=== PATIENT | male | born 1980 | race American Indian/Alaskan Native ===

== ENCOUNTER 2018-04-16 16:17 | Inpatient (IN) | payer OTHER ==
[2018-04-16] MEDS ORDERED: NORMODYNE IV ONE ×2 (16:43→16:48)
--- NOTE | 2018-04-16 16:57 | Emergency Department Report ---
ED General Adult HPI - General Chief complaint: Eye Problems Stated complaint: BLOOD PRESSUREDIZZY COLD Time Seen by Provider: 04/16/18 16:51 Source: EMS Mode of arrival: Ambulatory Limitations: No Limitations - History of Present Illness Initial comments: Patient is 37 years old male with history of hypertension, noncompliant with his medication. Patient stated that last time he took his medication was more than one year ago. Patient presented to the ER complaining of significantly elevated blood pressure with bilateral blurry vision, shortness of breath and headache. She denied any chest pain, weakness, numbness or tingling sensation. Patient also stated that he is been having runny nose and congestion in the this taking [id number] cough medicine. Patient initial blood pressure in the ER is 253/187. - Related Data Home Medications Medication Instructions Recorded Confirmed Last Taken No Known Home Medications [No 04/16/18 04/16/18 Unknown Reported Home Medications] Allergies Allergy/AdvReac Type Severity Reaction Status Date / Time No Known Allergies Allergy Verified 04/16/18 16:41 ED Review of Systems ROS: Stated complaint: BLOOD PRESSUREDIZZY COLD Other details as noted in HPI Comment: All other systems reviewed and negative Constitutional: denies: chills, fever Respiratory: denies: cough, orthopnea, shortness of breath, SOB with exertion, SOB at rest, wheezing Cardiovascular: palpitations. denies: chest pain, dyspnea on exertion, orthopnea Gastrointestinal: denies: abdominal pain, nausea, vomiting, diarrhea, constipation, hematemesis, melena, hematochezia Neurological: headache. denies: weakness, numbness, paresthesias, confusion, abnormal gait, vertigo ED Past Medical Hx - Past Medical History Previous Medical History?: Yes Hx Hypertension: Yes - Surgical History Past Surgical History?: Yes Additional Surgical History: L. leg - Social History Smoking Status: Current Every Day Smoker Substance Use Type: Alcohol, Marijuana - Medications Home Medications: Home Medications Medication Instructions Recorded Confirmed Last Taken Type No Known Home Medications [No 04/16/18 04/16/18 Unknown History Reported Home Medications] ED Physical Exam - General Limitations: No Limitations General appearance: alert, anxious - Head Head exam: Present: atraumatic, normocephalic, normal inspection - Eye Eye exam: Present: normal appearance - ENT ENT exam: Present: normal exam, normal orophraynx, mucous membranes moist - Neck Neck exam: Present: normal inspection, full ROM. Absent: tenderness, meningismus, lymphadenopathy, thyromegaly - Respiratory Respiratory exam: Present: normal lung sounds bilaterally. Absent: respiratory distress, wheezes, rales, rhonchi, accessory muscle use, decreased breath sounds , prolonged expiratory - Cardiovascular Cardiovascular Exam: Present: regular rate, normal rhythm, normal heart sounds - GI/Abdominal GI/Abdominal exam: Present: soft, normal bowel sounds. Absent: distended, tenderness, guarding, rebound, rigid, organomegaly, mass, bruit, pulsatile mass - Extremities Exam Extremities exam: Present: normal inspection, full ROM, normal capillary refill. Absent: tenderness, pedal edema, joint swelling, calf tenderness - Back Exam Back exam: Present: normal inspection, full ROM. Absent: tenderness, CVA tenderness (R), CVA tenderness (L), muscle spasm, paraspinal tenderness, vertebral tenderness, rash noted - Neurological Exam Neurological exam: Present: alert, oriented X3, CN II-XII intact, normal gait - Skin Skin exam: Present: warm, intact, normal color. Absent: cyanosis, diaphoretic, erythema, urticaria ED Course Vital Signs 04/16/18 04/16/18 04/16/18 16:32 16:35 16:47 Temperature 98.4 F Pulse Rate 124 H 120 H Respiratory 18 22 Rate Blood Pressure 253/181 259/187 O2 Sat by Pulse 98 Oximetry 04/16/18 04/16/18 04/16/18 17:13 17:15 17:30 Temperature Pulse Rate 98 H 99 H 99 H Respiratory 21 25 H 20 Rate Blood Pressure 215/158 O2 Sat by Pulse 90 91 89 Oximetry 04/16/18 04/16/18 04/16/18 17:45 18:00 18:15 Temperature Pulse Rate 105 H 103 H 108 H Respiratory 28 H 27 H 20 Rate Blood Pressure 227/165 225/153 224/165 O2 Sat by Pulse 88 86 88 Oximetry 04/16/18 18:30 Temperature Pulse Rate 108 H Respiratory 30 H Rate Blood Pressure 214/162 O2 Sat by Pulse 91 Oximetry - Reevaluation(s) Reevaluation #1: 04/16/18 17:48 Discussed the patient was Dr. Cameron Heredia, genetic supervisor, he advised to continue the Cardizem drip and add clonidine patch 0.3 mg and start patient on Aldactone 25 mg twice a day. He stated that patient would need dialysis tomorrow. ED Medical Decision Making - Lab Data Result diagrams: 04/16/18 16:55 04/16/18 16:55 - EKG Data -: EKG Interpreted by Me EKG shows normal: sinus rhythm Rate: tachycardia - EKG Data Interpretation: no acute changes, nonspecific ST-T wave poncho - Radiology Data Radiology results: report reviewed Referring Physician: AMANDA MULLIGAN Patient Name: LOUIE HICKS Date of : 1980 Sex: Male Report Date: 2018-04-16 Report Status: Finalized Findings [address] [address] XRay Report Signed Patient: LOUIE HICKS MR#: [id number] : 1980 Acct:[id number] Age/Sex: 37 / M ADM Date: 04/16/18 Loc: ED Attending Dr: Ordering Physician: AMANDA MULLIGAN Date of Service: 04/16/18 Procedure(s): XR chest 1V ap Accession Number(s): [id number] cc: AMANDA MULLIGAN Fluoro Time In Minutes: FINAL REPORT EXAM: XR CHEST 1V AP HISTORY: SOB TECHNIQUE: Single AP view of the chest PRIORS: None. FINDINGS: There is confluent increased density within the right lower lobe distribution suspicious for pneumonia No pleural effusion is identified. Pulmonary vasculature is unremarkable. The cardiac and mediastinal contours are within normal limits. IMPRESSION: Right lower lobe infiltrate most consistent with pneumonia Transcribed By: JDK Dictated By: HILARY MANUEL MD Electronically Authenticated By: HILARY MANUEL MD Signed Date/Time: 04/16/18 5549 Referring Physician: AMANDA MULLIGAN Patient Name: LOUIE HICKS Date of : 1980 Sex: Male Report Date: 2018-04-16 Report Status: Finalized Findings [address] [address] Cat Scan Report Signed Patient: LOUIE HICKS MR#: [id number] : 1980 Acct:[id number] Age/Sex: 37 / M ADM Date: 04/16/18 Loc: ED Attending Dr: Ordering Physician: AMANDA MULLIGAN Date of Service: 04/16/18 Procedure(s): CT head/brain wo con Accession Number(s): [id number] cc: AMANDA MULLIGAN FINAL REPORT EXAM: CT HEAD/BRAIN WO CON HISTORY: blurred vision, elevated BP TECHNIQUE: CT head without contrast PRIORS: None. FINDINGS: There is white matter hypodensity both frontal lobes with preservation of brumfield-white matter differentiation. Noted is a cavum septum pellucidum et vergae. Ventricles are otherwise unremarkable. No evidence for midline shift or mass effect. No acute intra or extra-axial hemorrhage identified. Bony calvarium is intact. Visualized portions of the mastoids and paranasal sinuses are unremarkable. IMPRESSION: White matter hypodensity both frontal lobes. Differential considerations include hypertensive encephalopathy, chronic ischemic or traumatic change or edema due to underlying mass. Recommend followup MRI to include intravenous contrast Transcribed By: [facility] Dictated By: HILARY MANUEL MD Electronically Authenticated By: HILARY MANUEL MD Signed Date/Time: 04/16/181745 DD/ 45 TD/TT: 04/16/181745 DD/ 55 TD/TT: 04/16/181755 - Medical Decision Making I discussed patient with Dr Valdez, he agreed to admit to his service. Critical Care Time: Yes Critical care time in (mins) excluding proc time.: 30 Critical care attestation.: If time is entered above; I have spent that time in minutes in the direct care of this critically ill patient, excluding procedure time. ED Disposition Clinical Impression: Hypertensive crisis, Acute renal failure, RLL pneumonia, Hypoxia Disposition: OP ADMIT IP TO THIS HOSP Is pt being admited?: Yes Condition: Stable Instructions: Bacterial Pneumonia (ED) Referrals: PRIMARY CARE, [Primary Care Provider] - 3-5 Days
[2018-04-16 17:13] LABS: Hematocrit 35.1 % (35.5-45.6); Hemoglobin 12.2 gm/dl (11.8-15.2); Mean Corpuscular Volume 91 fl (84-94); Red Blood Count 3.88 M/mm3 (3.65-5.03)
[2018-04-16 17:14] LABS: Basophils # (Auto) 0.1 K/mm3 (0.0-0.1); Basophils % (Auto) 1.3 % (0.0-1.8); Eosinophils % (Auto) 0.2 % (0.0-4.3); Lymphocytes # (Auto) 0.8 K/mm3 (1.2-5.4); Lymphocytes % (Auto) 7.4 % (13.4-35.0); Mean Corpuscular HGB Conc 35 % (32-34); Mean Corpuscular Hemoglobin 31 pg (28-32); Monocytes # (Auto) 0.8 K/mm3 (0.0-0.8); Monocytes % (Auto) 8.3 % (0.0-7.3); Platelet Count 116 K/mm3 (140-440); Red Cell Distribution Width 14.4 % (13.2-15.2)
[2018-04-16 17:29] LABS: Calcium 9.4 mg/dL (8.4-10.2)
[2018-04-16] MEDS ORDERED: ALDACTONE PO ONE (17:44)
--- NOTE | 2018-04-16 17:50 | Cat Scan Report ---
FINAL REPORT EXAM: CT HEAD/BRAIN WO CON HISTORY: blurred vision, elevated BP TECHNIQUE: CT head without contrast PRIORS: None. FINDINGS: There is white matter hypodensity both frontal lobes with preservation of brumfield-white matter differentiation. Noted is a cavum septum pellucidum et vergae. Ventricles are otherwise unremarkable. No evidence for midline shift or mass effect. No acute intra or extra-axial hemorrhage identified. Bony calvarium is intact. Visualized portions of the mastoids and paranasal sinuses are unremarkable. IMPRESSION: White matter hypodensity both frontal lobes. Differential considerations include hypertensive encephalopathy, chronic ischemic or traumatic change or edema due to underlying mass. Recommend followup MRI to include intravenous contrast
[2018-04-16] MEDS ORDERED: CATAPRES-TTS PATCH TD SCH (18:00)
--- NOTE | 2018-04-16 18:01 | XRay Report ---
FINAL REPORT EXAM: XR CHEST 1V AP HISTORY: SOB TECHNIQUE: Single AP view of the chest PRIORS: None. FINDINGS: There is confluent increased density within the right lower lobe distribution suspicious for pneumonia No pleural effusion is identified. Pulmonary vasculature is unremarkable. The cardiac and mediastinal contours are within normal limits. IMPRESSION: Right lower lobe infiltrate most consistent with pneumonia
--- NOTE | 2018-04-16 18:11 | History and Physical Report ---
History of Present Illness Chief complaint: Justina been coughing History of present illness: 37 YO Male with HTN, Nicotine Dependence, Medication Noncompliance for past 2 years presents to ED for evaluation. Pt states that he has experienced a nonproductive cough for the past 4 days with persistent symptoms over the same time frame. Pt also acknowledges blurred vision, headache, confusion, and shortness of breath. Pt states that he feels like his thinking is "slow". Pt seen and evaluated in ED and found to have Hypertensive Emergency with blood pressure of 259/187, as well as Acute Renal Failure, and Right Lung Pneumonia. Pt admitted to ICU, and initiated on cardene drip. Nephrology consulted in ED. Past History Past Medical History: hypertension Past Surgical History: Other (left Leg surgery) Social history: smoking Family history: hypertension Medications and Allergies Allergies Allergy/AdvReac Type Severity Reaction Status Date / Time No Known Allergies Allergy Verified 04/16/18 16:41 Home Medications Medication Instructions Recorded Confirmed Last Taken Type No Known Home Medications [No 04/16/18 04/16/18 Unknown History Reported Home Medications] Active Meds: Active Medications Clonidine HCl (Catapres-Tts Patch) 0.3 mg TD Busch KEITH Nicardipine HCl 50 mg/ Sodium (Chloride) 250 mls @ 25 mls/hr IV TITR KEITH; Protocol Review of Systems Constitutional: weakness, no weight loss, no weight gain, no fever, no chills Eyes: bilateral: blurred vision Ears, nose, mouth and throat: no ear pain, no ear discharge, no tinnitis, no decreased hearing, no nose pain, no nasal congestion Cardiovascular: no chest pain, no orthopnea, no palpitations, no rapid/ irregular heart beat Respiratory: shortness of breath, no cough, no cough with sputum, no excessive sputum, no hemoptysis Gastrointestinal: no nausea, no vomiting, no diarrhea, no constipation, no change in bowel habits Genitourinary Male: no hematuria, no flank pain, no discharge, no urinary frequency Rectal: no pain, no incontinence, no bleeding Musculoskeletal: no neck stiffness, no neck pain, no shooting arm pain, no arm numbness/tingling, no low back pain, no hot joints, no morning stiffness, no muscle weakness Integumentary: no rash, no pruritis, no redness, no sores, no wounds, no jaundice Neurological: headaches, confusion Endocrine: no cold intolerance, no heat intolerance, no polyphagia, no excessive thirst, no polydipsia, no polyuria, no increase in ring/shoe/hat size , no proptosis, no deepening of the voice, no palpatations Hematologic/Lymphatic: no easy bruising, no easy bleeding, no lymphadenopathy, no lymphedema Allergic/Immunologic: no urticaria, no allergic rhinitis, no wheezing, no persistent infections, no anaphylaxis, no angioedema Exam - Constitutional Vitals: Temp Pulse Resp BP Pulse Ox 98.4 F 105 H 28 H 227/165 88 04/16/18 16:32 04/16/18 17:45 04/16/18 17:45 04/16/18 17:45 04/16/18 17:45 General appearance: Present: mild distress - EENT Eyes: Present: PERRL ENT: hearing intact, clear oral mucosa - Neck Neck: Present: supple, normal ROM - Respiratory Respiratory effort: normal Respiratory: bilateral: CTA - Cardiovascular Heart Sounds: Present: S1 & S2. Absent: rub, click - Extremities Extremities: pulses symmetrical, No edema Peripheral Pulses: within normal limits - Abdominal General gastrointestinal: Present: soft, non-tender, non-distended, normal bowel sounds Male genitourinary: Present: normal - Integumentary Integumentary: Present: clear, warm, dry - Musculoskeletal Musculoskeletal: gait normal, strength equal bilaterally - Psychiatric Psychiatric: appropriate mood/affect, intact judgment & insight - Neurologic Neurologic: CNII-XII intact, moves all extremities Results - Labs CBC & Chem 7: 04/16/18 16:55 04/16/18 16:55 Labs: Abnormal lab results 04/16/18 04/16/18 Range/Units 16:55 16:55 Hct 35.1 L (35.5-45.6) % MCHC 35 H (32-34) % Plt Count 116 L (140-440) K/mm3 Lymph % (Auto) 7.4 L (13.4-35.0) % Bay % (Auto) 8.3 H (0.0-7.3) % Lymph # 0.8 L (1.2-5.4) K/mm3 Seg Neutrophils % 82.8 H (40.0-70.0) % Seg Neutrophils # 8.4 H (1.8-7.7) K/mm3 Sodium 133 L (137-145) mmol/L Chloride 89.2 L (98-107) mmol/L Carbon Dioxide 18 L (22-30) mmol/L BUN 104 H (9-20) mg/dL Creatinine 19.1 H (0.8-1.5) mg/dL Glucose 139 H (75-100) mg/dL Troponin T 0.190 H* (0.00-0.029) ng/mL Assessment and Plan - Patient Problems (1) Hypertensive crisis Current Visit: Yes Status: Acute Plan to address problem: Initiate Cardene drip, monitor BP q shift, Admit to ICU. Sytolic BP Goal overnight 190-205, Neuro checks, CT Brain, The high probability of a clinically significant, sudden or life threatening deterioration of the [Neuro, Cardiac,Renal] system(s) required my full and direct attention, intervention and personal management. The aggregate critical care time was [65] minutes. This time is in addition to time spent performing reported procedures but includes the following: [x] Data Review and interpretation [x] Patient assessment and monitoring of vital signs [x] Documentation [x] Medication orders and management (2) Acidosis Current Visit: Yes Status: Acute Plan to address problem: Monitor uop q shift, supportive care, repeat bmp, (3) Nicotine dependence Current Visit: Yes Status: Acute Qualifiers: Substance use status: in withdrawal Plan to address problem: Smoking cessation counseling. (4) Acute renal failure Current Visit: Yes Status: Acute Qualifiers: Acute renal failure type: with acute tubular necrosis Qualified Code(s): N17.0 - Acute kidney failure with tubular necrosis Plan to address problem: Nephrology consulted in ED, monitor uop q shift, Vascular consulted for permacath placement, (5) RLL pneumonia Current Visit: Yes Status: Acute Plan to address problem: Pneumonia protocol: IV antibiotics, blood cultures, chest x ray, supplemental oxygen, nebulizer therapy, (6) DVT prophylaxis Current Visit: Yes Status: Acute Plan to address problem: SCD to BLE while in bed.
[2018-04-16] MEDS ORDERED: SODIUM CHLORIDE FLUSH SYRINGE 10 ML IV PRN (18:14)
[2018-04-16 18:17] LABS: Chol/HDL Ratio 4.3 %
[2018-04-16] MEDS: ASPIRIN PO ONE ×2 (18:42→18:50)
[2018-04-16] MEDS: CARDENE 50 MG in NACL 0.9% 250ML 230 ML IV SCH (18:49)
[2018-04-16] MEDS: ZITHROMAX 500 MG in NACL 0.9% 250ML 250 ML IV SCH (20:09)
[2018-04-16] MEDS: ROCEPHIN/NS 1 GM/50 ML 1 GM/50 ML BAG IV SCH (20:56)
--- NOTE | 2018-04-16 21:07 | Event Note ---
Date: 04/16/18 Vascular surgery consulted for permcath placement. Plan for tomorrow.
[2018-04-17] MEDS: CARDENE 50 MG in NACL 0.9% 250ML 230 ML IV SCH ×4 (04:08→18:34)
[2018-04-17] MEDS ORDERED: HEPARIN/NS 5000 UNIT/500ML(CATH LAB) 500 ML IR ONE (08:21)
[2018-04-17] MEDS ORDERED: ANCEF/STERILE WATER 2 GM/20 ML 0 GM/0 ML SYRINGE IV ONE (08:22)
[2018-04-17] MEDS ORDERED: XYLOCAINE 2% INFILTRATI ONE (08:22)
[2018-04-17] MEDS ORDERED: VERSED ONE (08:23)
[2018-04-17] MEDS ORDERED: NACL 0.9% 250ML 250 ML ONE (08:27)
[2018-04-17] MEDS: SUBLIMAZE ONE ×2 (08:59→09:07)
[2018-04-17] MEDS: HEPARIN 10,000 UNITS/10 ML ONE ×6 (09:03→09:10)
--- NOTE | 2018-04-17 09:16 | Operative Report ---
Operative Report Operative Report: Exam: Ultrasound and fluoroscopic guided placement of tunneled hemodialysis catheter Clinical indication: Patient with a history of end-stage renal disease requiring dialysis access Date: 04/17/2018 Procedure: Following an explanation of the risks, benefits and alternatives; written informed consent was obtained. The patient was brought to the cardiac catheterization suite and placed in supine position on the examination table. Initial ultrasound evaluation of his right neck demonstrated a patent right internal jugular vein. The patient's right neck and chest wall were prepped and draped in the usual sterile fashion. 1% lidocaine was used for anesthesia. Under ultrasound guidance, the right internal jugular vein was cannulated with a 7 cm 18-gauge needle. A 0.035 guidewire was advanced into the IVC under fluoroscopy to document intravenous positioning and for anchoring. The needle was removed. An appropriate catheter exit site was chosen along the right lateral chest wall. 1% lidocaine was used for anesthesia at the catheter exit site and along the tunnel tract. A Bard 23 cm glidepath tunneled hemodialysis catheter was then tunneled antegrade from the catheter exit site to the venotomy site. Following serial dilation over the guidewire under fluoroscopy, a 16 Bulgarian peel -away sheath was placed over the guidewire under fluoroscopy and advanced to position the tip of the sheath in the proximal right atrium. The trocar and guidewire were removed and the catheter placed through the peel-away sheath to position the tip in the proximal right atrium. The peel-away sheath was removed. Both ports flushed and aspirated easily and were then locked with appropriate volumes of heparin. The venotomy site was closed using 4-0 Vicryl suture and Dermabond. 4-0 Vicryl suture was also used to approximate the catheter exit site and additional Dermabond was placed at the catheter exit site. Sterile dressings were then applied. The patient tolerated the procedure well. There were no immediate post procedure complications. Conscious sedation was performed under the guidance of radiologic nursing. Continuous cardiopulmonary monitoring was utilized. Impression: 1) Ultrasound and fluoroscopic guided placement of 23 cm Bard glidepath tunneled hemodialysis catheter via the right internal jugular vein.
--- NOTE | 2018-04-17 09:55 | Progress Note ---
Assessment and Plan / Hypertensive crisis wean off Cardene drip, monitor BP q shift, normal CT Brain, Place on coreg, norvasc add aspirin, statin / Acute renal failure, likely from hypertensive nephropathy Nephrology consulted in ED for HD, Permacath placement by Vascular Plan for HD today / RLL pneumonia cont IV antibiotics, supplemental oxygen, nebulizer therapy, /Elevated troponin likely from uncontrolled BP, trend trop, obtain 2d echo /Abnormal CT head, obtain mRI /Metabolic Acidosis Monitor uop q shift, should correct with HD /Nicotine dependence Smoking cessation counseling. / DVT prophylaxis SCD to BLE while in bed. Brief History: 37 YO Male with HTN, Nicotine Dependence, Medication Noncompliance for past 2 years presents to ED for evaluation of nonproductive cough blurred vision, headache, confusion, and shortness of breath. Pt seen and evaluated in ED and found to have Hypertensive Emergency with blood pressure of 259/187, as well as Acute Renal Failure, and Right Lung Pneumonia. Pt admitted to ICU, and initiated on cardene drip. Nephrology consulted in ED. Subjective Date of service: 04/17/18 Interval history: Pt seen and examined S/p vascath placement still on cardene drip Objective - Constitutional Vitals: Vital Signs - 12hr 04/16/18 04/16/18 04/16/18 22:00 22:15 23:16 Temperature Pulse Rate 106 H 105 H 115 H Pulse Rate [ From Monitor] Respiratory 24 30 H 20 Rate Blood Pressure 178/116 180/126 O2 Sat by Pulse 95 91 94 Oximetry 04/16/18 04/16/18 04/17/18 23:31 23:45 00:00 Temperature 98.5 F Pulse Rate 112 H 108 H Pulse Rate [ From Monitor] Respiratory 19 22 20 Rate Blood Pressure 153/102 153/102 O2 Sat by Pulse 95 92 96 Oximetry 04/17/18 04/17/18 04/17/18 00:01 00:05 00:15 Temperature Pulse Rate 110 H 110 H 112 H Pulse Rate [ From Monitor] Respiratory 24 28 H 24 Rate Blood Pressure 139/90 139/90 139/90 O2 Sat by Pulse 94 94 91 Oximetry 04/17/18 04/17/18 04/17/18 00:30 00:45 01:00 Temperature Pulse Rate 109 H 108 H 110 H Pulse Rate [ From Monitor] Respiratory 29 H 28 H 30 H Rate Blood Pressure 138/85 138/85 131/87 O2 Sat by Pulse 95 94 97 Oximetry 04/17/1804/17/04/17/18 01:15 01:31 01:45 Temperature Pulse Rate 112 H 108 H 105 H Pulse Rate [ From Monitor] Respiratory 25 H 25 H 27 H Rate Blood Pressure 131/87 126/73 126/73 O2 Sat by Pulse 94 95 94 Oximetry 04/17/18 04/17/18 04/17/18 02:01 02:15 02:31 Temperature Pulse Rate 107 H 105 H 106 H Pulse Rate [ From Monitor] Respiratory 30 H 26 H 30 H Rate Blood Pressure 133/85 133/85 133/85 O2 Sat by Pulse 93 96 95 Oximetry 04/17/18 04/17/18 07 02:45 03:01 03:15 Temperature Pulse Rate 109 H 114 H 110 H Pulse Rate [ From Monitor] Respiratory 23 29 H 25 H Rate Blood Pressure 151/99 160/103 160/103 O2 Sat by Pulse 95 93 96 Oximetry 04/17/18 04/17/18 07 03:31 03:45 04:00 Temperature 98.8 F Pulse Rate 111 H 112 H Pulse Rate [ From Monitor] Respiratory 27 H 16 24 Rate Blood Pressure 151/91 151/91 O2 Sat by Pulse 92 97 94 Oximetry 04/17/18 04/17/18 07 04:01 04:15 04:31 Temperature Pulse Rate 110 H 110 H 107 H Pulse Rate [ From Monitor] Respiratory 23 31 H 20 Rate Blood Pressure 148/84 148/84 148/84 O2 Sat by Pulse 94 93 92 Oximetry 04/17/18 04/17/18 04/17/18 04:45 05:01 05:15 Temperature Pulse Rate 108 H 108 H 107 H Pulse Rate [ From Monitor] Respiratory 16 30 H 29 H Rate Blood Pressure 136/82 140/93 140/93 O2 Sat by Pulse 93 95 92 Oximetry 04/17/1804/17/02 05:31 05:45 06:01 Temperature Pulse Rate 105 H 104 H 108 H Pulse Rate [ From Monitor] Respiratory 22 19 12 Rate Blood Pressure 139/72 139/72 131/78 O2 Sat by Pulse 94 96 94 Oximetry 04/17/18 04/17/18 07 06:15 06:30 06:45 Temperature Pulse Rate 107 H 105 H 106 H Pulse Rate [ From Monitor] Respiratory 20 23 13 Rate Blood Pressure 131/78 135/80 135/80 O2 Sat by Pulse 95 94 95 Oximetry 04/17/18 04/17/18 04/17/18 07:01 07:15 07:30 Temperature Pulse Rate 105 H 108 H 107 H Pulse Rate [ From Monitor] Respiratory 17 26 H 24 Rate Blood Pressure 133/83 133/83 137/77 O2 Sat by Pulse 96 95 94 Oximetry 04/17/18 08:00 Temperature 98.1 F Pulse Rate Pulse Rate [ 108 H From Monitor] Respiratory 24 Rate Blood Pressure O2 Sat by Pulse 95 Oximetry General appearance: Present: no acute distress, well-nourished - EENT Eyes: PERRL, EOM intact ENT: hearing intact, clear oral mucosa Ears: bilateral: normal - Neck Neck: supple, normal ROM - Respiratory Respiratory effort: normal Respiratory: bilateral: CTA - Cardiovascular Rhythm: regular Heart Sounds: Present: S1 & S2. Absent: gallop, rub Extremities: pulses intact, No edema, normal color, Full ROM - Gastrointestinal General gastrointestinal: Present: soft, non-tender, non-distended, normal bowel sounds - Integumentary Integumentary: clear, warm, dry - Musculoskeletal Musculoskeletal: 1, strength equal bilaterally - Neurologic Neurologic: moves all extremities - Psychiatric Psychiatric: memory intact, appropriate mood/affect, intact judgment & insight - Labs CBC & Chem 7: 04/17/18 16:13 04/17/18 16:13 Labs: Abnormal lab results 04/16/18 04/16/18 04/16/18 Range/Units 16:55 16:55 16:55 Hct 35.1 L (35.5-45.6) % MCHC 35 H (32-34) % Plt Count 116 L (140-440) K/mm3 Lymph % (Auto) 7.4 L (13.4-35.0) % [place] % (Auto) 8.3 H (0.0-7.3) % Lymph # 0.8 L (1.2-5.4) K/mm3 Seg Neutrophils % 82.8 H (40.0-70.0) % Seg Neutrophils # 8.4 H (1.8-7.7) K/mm3 Sodium 133 L (137-145) mmol/L Chloride 89.2 L (98-107) mmol/L Carbon Dioxide 18 L (22-30) mmol/L BUN 104 H (9-20) mg/dL Creatinine 19.1 H (0.8-1.5) mg/dL Glucose 139 H (75-100) mg/dL Troponin T 0.190 H* (0.00-0.029) ng/mL NT-Pro-B Natriuret Pep > 10590 H (0-450) pg/mL Cholesterol 258 H (50-199) mg/dL LDL Cholesterol Direct 178 H (50-130) mg/dL HDL Cholesterol 60 H (40-59) mg/dL 04/16/18 04/16/18 Range/Units 19:28 22:01 Hct (35.5-45.6) % MCHC (32-34) % Plt Count (140-440) K/mm3 Lymph % (Auto) (13.4-35.0) % [place] % (Auto) (0.0-7.3) % Lymph # (1.2-5.4) K/mm3 Seg Neutrophils % (40.0-70.0) % Seg Neutrophils # (1.8-7.7) K/mm3 Sodium (137-145) mmol/L Chloride (98-107) mmol/L Carbon Dioxide (22-30) mmol/L BUN (9-20) mg/dL Creatinine (0.8-1.5) mg/dL Glucose (75-100) mg/dL Troponin T 0.149 H* D 0.171 H* (0.00-0.029) ng/mL NT-Pro-B Natriuret Pep (0-450) pg/mL Cholesterol (50-199) mg/dL LDL Cholesterol Direct (50-130) mg/dL HDL Cholesterol (40-59) mg/dL - Imaging and cardiology Chest x-ray: report reviewed CT Scan - head: report reviewed
[2018-04-17] MEDS ORDERED: NACL 0.9% 100 ML IV PRN (10:46)
--- NOTE | 2018-04-17 10:46 | Consultation ---
History of Present Illness - Reason for Consult Consult date: 04/17/18 - History of Present Illness pt was seen and examined. Discussed with pt and family member. Uremia, S/P dialysis catheter this morning. HD as ordered. Hypertensive crisis--on Cardene drip. Avoid hypotension. Past History Past Medical History: hypertension Past Surgical History: Other (left Leg surgery) Social history: smoking Family history: hypertension Medications and Allergies Allergies Allergy/AdvReac Type Severity Reaction Status Date / Time No Known Allergies Allergy Verified 04/16/18 16:41 Home Medications Medication Instructions Recorded Confirmed Last Taken Type No Known Home Medications [No 04/16/18 04/16/18 Unknown History Reported Home Medications] Active Meds: Active Medications Clonidine HCl (Catapres-Tts Patch) 0.3 mg TD Busch KEITH Last Admin: 04/16/18 18:41 Dose: 0.3 mg Nicardipine HCl 50 mg/ Sodium (Chloride) 250 mls @ 25 mls/hr IV TITR KEITH; Protocol Last Admin: 04/17/18 06:52 Dose: 15 mg/hr, 75 mls/hr Azithromycin 500 mg/ Sodium (Chloride) 250 mls @ 250 mls/hr IV Q24H KEITH; Protocol Last Admin: 04/16/18 20:09 Dose: 250 mls/hr Ceftriaxone Sodium (Rocephin/Ns 1 Gm/50 Ml) 1 gm in 50 mls @ 100 mls/hr IV Q24H KEITH; Protocol Last Admin: 04/16/18 20:56 Dose: 100 mls/hr Sodium Chloride (Sodium Chloride Flush Syringe 10 Ml) 10 ml IV BID KEITH Sodium Chloride (Sodium Chloride Flush Syringe 10 Ml) 10 ml IV PRN PRN PRN Reason: LINE FLUSH Exam - Constitutional Vitals: Temp Pulse Resp BP Pulse Ox 98.1 F 103 H 23 149/94 97 04/17/18 08:00 04/17/18 10:16 04/17/18 10:16 04/17/18 10:16 04/17/18 10:16 Results - Labs CBC & Chem 7: 04/16/18 16:55 04/16/18 16:55 Labs: Abnormal lab results 04/16/18 04/16/18 04/16/18 Range/Units 16:55 16:55 16:55 Hct 35.1 L (35.5-45.6) % MCHC 35 H (32-34) % Plt Count 116 L (140-440) K/mm3 Lymph % (Auto) 7.4 L (13.4-35.0) % [place] % (Auto) 8.3 H (0.0-7.3) % Lymph # 0.8 L (1.2-5.4) K/mm3 Seg Neutrophils % 82.8 H (40.0-70.0) % Seg Neutrophils # 8.4 H (1.8-7.7) K/mm3 Sodium 133 L (137-145) mmol/L Chloride 89.2 L (98-107) mmol/L Carbon Dioxide 18 L (22-30) mmol/L BUN 104 H (9-20) mg/dL Creatinine 19.1 H (0.8-1.5) mg/dL Glucose 139 H (75-100) mg/dL Troponin T 0.190 H* (0.00-0.029) ng/mL NT-Pro-B Natriuret Pep > 94945 H (0-450) pg/mL Cholesterol 258 H (50-199) mg/dL LDL Cholesterol Direct 178 H (50-130) mg/dL HDL Cholesterol 60 H (40-59) mg/dL 04/16/18 04/16/18 Range/Units 19:28 22:01 Hct (35.5-45.6) % MCHC (32-34) % Plt Count (140-440) K/mm3 Lymph % (Auto) (13.4-35.0) % [place] % (Auto) (0.0-7.3) % Lymph # (1.2-5.4) K/mm3 Seg Neutrophils % (40.0-70.0) % Seg Neutrophils # (1.8-7.7) K/mm3 Sodium (137-145) mmol/L Chloride (98-107) mmol/L Carbon Dioxide (22-30) mmol/L BUN (9-20) mg/dL Creatinine (0.8-1.5) mg/dL Glucose (75-100) mg/dL Troponin T 0.149 H* D 0.171 H* (0.00-0.029) ng/mL NT-Pro-B Natriuret Pep (0-450) pg/mL Cholesterol (50-199) mg/dL LDL Cholesterol Direct (50-130) mg/dL HDL Cholesterol (40-59) mg/dL
--- NOTE | 2018-04-17 11:41 | Consultation ---
History of Present Illness Consult date: 04/17/18 Requesting physician: CARLOTTA BAKER Reason for consult: other (Hypertensive Emergency) History of present illness: PULMONARY/CCM CONSULT NOTE (Full dictation # [id number]) Please see dictated notes for full details Past History Past Medical History: hypertension Past Surgical History: Other (left Leg surgery) Social history: smoking Family history: hypertension Medications and Allergies Allergies Allergy/AdvReac Type Severity Reaction Status Date / Time No Known Allergies Allergy Verified 04/16/18 16:41 Home Medications Medication Instructions Recorded Confirmed Last Taken Type No Known Home Medications [No 04/16/18 04/16/18 Unknown History Reported Home Medications] Active Meds: Active Medications Clonidine HCl (Catapres-Tts Patch) 0.3 mg TD Busch KEITH Last Admin: 04/16/18 18:41 Dose: 0.3 mg Nicardipine HCl 50 mg/ Sodium (Chloride) 250 mls @ 25 mls/hr IV TITR KEITH; Protocol Last Admin: 04/17/18 06:52 Dose: 15 mg/hr, 75 mls/hr Azithromycin 500 mg/ Sodium (Chloride) 250 mls @ 250 mls/hr IV Q24H KEITH; Protocol Last Admin: 04/16/18 20:09 Dose: 250 mls/hr Ceftriaxone Sodium (Rocephin/Ns 1 Gm/50 Ml) 1 gm in 50 mls @ 100 mls/hr IV Q24H KEITH; Protocol Last Admin: 04/16/18 20:56 Dose: 100 mls/hr Sodium Chloride (Nacl 0.9%) 100 mls @ 999 mls/hr IV PANKAJ PRN PRN Reason: Hypotension Sodium Chloride (Sodium Chloride Flush Syringe 10 Ml) 10 ml IV BID KEITH Sodium Chloride (Sodium Chloride Flush Syringe 10 Ml) 10 ml IV PRN PRN PRN Reason: LINE FLUSH Physical Examination Vital signs: Vital Signs Temp Pulse Resp BP Pulse Ox 98.4 F 124 H 18 253/181 98 04/16/18 16:32 04/16/18 16:32 04/16/18 16:32 04/16/18 16:32 04/16/18 16:32 Results - Laboratory Findings CBC and BMP: 04/17/18 16:13 04/17/18 16:13 Abnormal lab findings: Abnormal Labs 07/01/18 07/01/18 07/01/18 16:55 16:55 16:55 Hct 35.1 L MCHC 35 H Plt Count 116 L Lymph % (Auto) 7.4 L [place] % (Auto) 8.3 H Lymph # 0.8 L Seg Neutrophils % 82.8 H Seg Neutrophils # 8.4 H Sodium 133 L Chloride 89.2 L Carbon Dioxide 18 L BUN 104 H Creatinine 19.1 H Glucose 139 H Troponin T 0.190 H* NT-Pro-B Natriuret Pep > 08552 H Cholesterol 258 H LDL Cholesterol Direct 178 H HDL Cholesterol 60 H 04/16/18 04/16/18 19:28 22:01 Hct MCHC Plt Count Lymph % (Auto) [place] % (Auto) Lymph # Seg Neutrophils % Seg Neutrophils # Sodium Chloride Carbon Dioxide BUN Creatinine Glucose Troponin T 0.149 H* D 0.171 H* NT-Pro-B Natriuret Pep Cholesterol LDL Cholesterol Direct HDL Cholesterol
[2018-04-17] MEDS: PEPCID PO SCH (12:52)
[2018-04-17] MEDS: HEPARIN SUB-Q SCH ×2 (13:02→22:15)
[2018-04-17] MEDS: APRESOLINE IV SCH ×4 (15:23→22:11)
[2018-04-17 15:27] LABS: Hepatitis A Antibody IgM Non-Reactive (NonReactive); Hepatitis B Core IgM Non-Reactive (NonReactive); Hepatitis B Surface Antigen Non-Reactive (Negative); Hepatitis C Virus Antibody Non-Reactive (NonReactive)
[2018-04-17 16:33] LABS: Hematocrit 29.7 % (35.5-45.6); Mean Corpuscular HGB Conc 34 % (32-34); Mean Corpuscular Hemoglobin 31 pg (28-32); Mean Corpuscular Volume 91 fl (84-94); Platelet Count 148 K/mm3 (140-440); Red Blood Count 3.25 M/mm3 (3.65-5.03); Red Cell Distribution Width 14.6 % (13.2-15.2)
[2018-04-17 16:44] LABS: Calcium 8.8 mg/dL (8.4-10.2)
[2018-04-17] MEDS: ZITHROMAX 500 MG in NACL 0.9% 250ML 250 ML IV SCH (18:09)
[2018-04-17] MEDS: ROCEPHIN/NS 1 GM/50 ML 1 GM/50 ML BAG IV SCH (18:33)
[2018-04-17] MEDS: SODIUM CHLORIDE FLUSH SYRINGE 10 ML IV SCH (22:18)
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
--- NOTE | 2018-04-18 00:11 | Consultation ---
RENAL CONSULTATION REASON FOR CONSULTATION: Renal failure. HISTORY OF PRESENT ILLNESS: This 37-year-old -[place] male with history of hypertension, smoking, was brought to the Emergency Room with blurry vision, shortness of breath and headache and he was noted to have blood pressure reading in the ER of 253/187. The patient was placed on Cardene drip. His labs revealed BUN of 104, creatinine of 19.1, CO2 of 18. Chest x-ray was reported to have right lower lobe infiltrate. The patient was admitted for hypertensive crisis and acute renal failure and right lower lobe pneumonia with hypoxia. The patient underwent right internal jugular tunneled catheter placement this morning for initiation of dialysis. PAST MEDICAL HISTORY: Hypertension. PERSONAL HISTORY: History of smoking and marijuana abuse and drinks alcohol. ALLERGIES: No known allergies. HOME MEDICATIONS: None. REVIEW OF SYSTEMS: Denies nausea or vomiting or abdomen pain. Denies fever or chills, had runny nose and nasal congestion, took [id number] cough medications prior to coming to the Emergency Room. Denies GI bleeding. Denies swelling of the legs. Denies dysuria or hematuria. Other review of systems reviewed and negative. PHYSICAL EXAMINATION: GENERAL: The patient is alert, oriented, well developed male, not in acute distress. VITAL SIGNS: Blood pressure 182/108, pulse 107, afebrile. HEENT: Head normocephalic. Sclerae nonicteric. Lips noncyanotic. NECK: No JVD, no thyroid enlargement. LUNGS: Diminished breath sounds in bases. HEART: S1, S2 regular. No pericardial rub. ABDOMEN: Soft, bowel sounds present, nontender. No abdomen bruit. EXTREMITIES: No significant edema, able to move all extremities. LABORATORY DATA: ZWBC 10.2, hemoglobin 12.2, hematocrit 35.1, platelets 116. Sodium 133, potassium 3.8, chloride , CO2 of 18, BUN 104, creatinine 19.1, glucose 139. Troponin 0.149. BNP more than 35,000. Cholesterol 258, LDL 178. Chest x-ray was reported to have right lower lobe infiltrate consistent with pneumonia. ASSESSMENT AND PLAN: 1. Hypertensive crisis. 2. End-stage renal disease. 3. Right lower lobe pneumonia. 4. Mild thrombocytopenia. Hemodialysis as ordered. Check urine studies and renal ultrasound. Optimize blood pressure medications. Avoid hypotension. Renal diet. JOB# [id number] SCOTT/PADMINI
[2018-04-18] MEDS: SODIUM CHLORIDE FLUSH SYRINGE 10 ML IV SCH ×3 (00:22→22:00)
[2018-04-18] MEDS: CARDENE 50 MG in NACL 0.9% 250ML 230 ML IV SCH ×2 (00:24→05:26)
[2018-04-18] MEDS: APRESOLINE IV SCH ×3 (02:37→09:32)
[2018-04-18] MEDS: HEPARIN SUB-Q SCH ×3 (05:25→21:49)
--- NOTE | 2018-04-18 08:31 | Progress Note ---
Assessment and Plan Assessment and plan: Hypertensive emergency Patient on Cardene drip, monitor BP q shift Placed on coreg, Hydralazine, Clonidine Acute kidney injury, likely from ATN Nephrology following, Permacath placement by Vascular Started on hemodialysis RLL pneumonia cont IV antibiotics, supplemental oxygen, nebulizer therapy, Elevated troponin Consult Cardiology Start Aspirin daily Abnormal CT head, obtain MRI Metabolic Acidosis Monitor uop q shift, should correct with HD Nicotine dependence Smoking cessation counseling. DVT prophylaxis with Heparin subcut. Full code status Medical non-compliance History Interval history: Patient with h hypertensive emergency,acute kidney injury No chest pain Hospitalist Physical - Physical exam Narrative exam: Gen : Not in acute distress,obese HEENT:Normocephalic, atraumatic Neck: supple, No JVD Lungs: Clear to auscultation, bilaterally, no rhonchi Heart :S1 and S2 reg, no murmurs, rubs or gallop Abd:soft, non tender, non distended, normal bowel sounds Ext: No edema, no clubbing, no cyanosis, Neuro: Awake,alert,oriented x 3, no focal signs Psych:normal mood - Constitutional Vitals: Temp Pulse Resp BP Pulse Ox 98.1 F 112 H 20 152/99 98 04/18/18 07:44 04/18/18 08:01 04/18/18 08:01 04/18/18 08:01 04/18/18 08:11 General appearance: Present: no acute distress, obese Results - Labs CBC & Chem 7: 04/18/18 12:21 04/18/18 12:21 Labs: Laboratory Last Values WBC 8.3 K/mm3 (4.5-11.0) 04/17/18 16:13 RBC 3.25 M/mm3 (3.65-5.03) L 04/17/18 16:13 Hgb 10.0 gm/dl (11.8-15.2) L 04/17/18 16:13 Hct 29.7 % (35.5-45.6) L 04/17/18 16:13 MCV 91 fl (84-94) 04/17/18 16:13 MCH 31 pg (28-32) 04/17/18 16:13 MCHC 34 % (32-34) 04/17/18 16:13 RDW 14.6 % (13.2-15.2) 04/17/18 16:13 Plt Count 148 K/mm3 (140-440) 04/17/18 16:13 Lymph % (Auto) 7.4 % (13.4-35.0) L 04/16/18 16:55 Stanton % (Auto) 8.3 % (0.0-7.3) H 04/16/18 16:55 Eos % (Auto) 0.2 % (0.0-4.3) 04/16/18 16:55 Baso % (Auto) 1.3 % (0.0-1.8) 04/16/18 16:55 Lymph # 0.8 K/mm3 (1.2-5.4) L 04/16/18 16:55 Stanton # 0.8 K/mm3 (0.0-0.8) 04/16/18 16:55 Eos # 0.0 K/mm3 (0.0-0.4) 04/16/18 16:55 Baso # 0.1 K/mm3 (0.0-0.1) 04/16/18 16:55 Seg Neutrophils % 82.8 % (40.0-70.0) H 04/16/18 16:55 Seg Neutrophils # 8.4 K/mm3 (1.8-7.7) H 04/16/18 16:55 Sodium 135 mmol/L (137-145) L 04/17/18 16:13 Potassium 3.6 mmol/L (3.6-5.0) 04/17/18 16:13 Chloride 91.3 mmol/L (98-107) L 04/17/18 16:13 Carbon Dioxide 22 mmol/L (22-30) 04/17/18 16:13 Anion Gap 25 mmol/L 04/17/18 16:13 BUN 66 mg/dL (9-20) H 04/17/18 16:13 Creatinine 14.6 mg/dL (0.8-1.5) H 04/17/18 16:13 Estimated GFR 5 ml/min 04/17/18 16:13 BUN/Creatinine Ratio 5 % 04/17/18 16:13 Glucose 120 mg/dL (75-100) H 04/17/18 16:13 Lactic Acid 1.10 mmol/L (0.7-2.0) 04/17/18 19:48 Calcium 8.8 mg/dL (8.4-10.2) 04/17/18 16:13 Troponin T 0.171 ng/mL (0.00-0.029) H* 04/16/18 22:01 C-Reactive Protein 2.70 mg/dL (0.00-1.30) H 04/17/18 19:48 NT-Pro-B Natriuret Pep > 42690 pg/mL (0-450) H 04/16/18 16:55 Triglycerides 139 mg/dL (2-149) 04/16/18 16:55 Cholesterol 258 mg/dL (50-199) H 04/16/18 16:55 LDL Cholesterol Direct 178 mg/dL (50-130) H 04/16/18 16:55 HDL Cholesterol 60 mg/dL (40-59) H 04/16/18 16:55 Cholesterol/HDL Ratio 4.30 % 04/16/18 16:55 TSH 2.110 mlU/mL (0.270-4.200) 04/17/18 19:48 Hepatitis A IgM Ab Non-reactive (NonReactive) 04/17/18 12:00 Hep Bs Antigen Non-reactive (Negative) 04/17/18 12:00 Hep B Core IgM Ab Non-reactive (NonReactive) 04/17/18 12:00 Hepatitis C Antibody Non-reactive (NonReactive) 04/17/18 12:00
[2018-04-18] MEDS: PEPCID PO SCH (09:34)
[2018-04-18] MEDS ORDERED: NORVASC PO SCH (10:00)
[2018-04-18] MEDS ORDERED: COREG PO SCH (10:00)
--- NOTE | 2018-04-18 10:17 | Progress Note ---
Assessment and Plan - Patient Problems (1) Acute kidney injury superimposed on CKD Current Visit: Yes Status: Acute Plan to address problem: renal ultrasound- bilateral echogenic kidneys. Most likely ESRD. Needs outpatient HD arrangements. HD tomorrow. BP better. 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 Urinalysis not done yet-- ordered yesterday. (2) Hypertensive crisis Current Visit: Yes Status: Acute (3) RLL pneumonia Current Visit: Yes Status: Acute (4) Anemia in CKD (chronic kidney disease) Current Visit: Yes Status: Acute Subjective Date of service: 04/18/18 Interval history: alert, oriented, denies CP or SOB Objective - Vital Signs Vital signs: Vital Signs - 12hr 04/17/18 04/17/18 04/17/18 22:30 22:46 23:00 Temperature Pulse Rate 110 H 110 H 110 H Pulse Rate [ From Monitor] Pulse Rate [ Left Dorsalis Pedis] Pulse Rate [ Right Dorsalis Pedis] Pulse Rate [ Right Radial] Respiratory 22 13 13 Rate Blood Pressure 145/83 135/82 144/87 O2 Sat by Pulse 97 98 93 Oximetry 04/17/18 04/17/18 04/17/18 23:15 23:30 23:42 Temperature 98.1 F Pulse Rate 109 H 109 H Pulse Rate [ From Monitor] Pulse Rate [ Left Dorsalis Pedis] Pulse Rate [ Right Dorsalis Pedis] Pulse Rate [ Right Radial] Respiratory 18 18 Rate Blood Pressure 132/87 142/79 O2 Sat by Pulse 94 93 Oximetry 04/17/18 04/18/18 04/18/18 23:45 00:00 00:04 Temperature Pulse Rate 109 H 108 H 108 H Pulse Rate [ 104 H From Monitor] Pulse Rate [ 104 H Left Dorsalis Pedis] Pulse Rate [ 104 H Right Dorsalis Pedis] Pulse Rate [ 104 H Right Radial] Respiratory 12 11 L 12 Rate Blood Pressure 140/86 132/87 143/78 O2 Sat by Pulse 94 97 96 Oximetry 04/18/18 04/18/18 04/18/18 00:15 00:30 00:46 Temperature Pulse Rate 97 H 103 H 97 H Pulse Rate [ From Monitor] Pulse Rate [ Left Dorsalis Pedis] Pulse Rate [ Right Dorsalis Pedis] Pulse Rate [ Right Radial] Respiratory 8 L 18 12 Rate Blood Pressure 155/80 155/80 145/83 O2 Sat by Pulse 95 96 95 Oximetry 04/18/18 04/18/18 04/18/18 01:00 01:16 01:30 Temperature Pulse Rate 100 H 105 H 109 H Pulse Rate [ From Monitor] Pulse Rate [ Left Dorsalis Pedis] Pulse Rate [ Right Dorsalis Pedis] Pulse Rate [ Right Radial] Respiratory 8 L 8 L 12 Rate Blood Pressure 164/102 164/102 162/93 O2 Sat by Pulse 96 95 93 Oximetry 04/18/18 04/18/18 04/18/18 01:40 01:46 02:00 Temperature Pulse Rate 108 H 97 H Pulse Rate [ 106 H From Monitor] Pulse Rate [ 106 H Left Dorsalis Pedis] Pulse Rate [ 106 H Right Dorsalis Pedis] Pulse Rate [ 106 H Right Radial] Respiratory 23 11 L 13 Rate Blood Pressure 152/92 143/89 O2 Sat by Pulse 91 93 92 Oximetry 04/18/18 04/18/18 04/18/18 02:15 02:30 02:37 Temperature Pulse Rate 108 H 100 H 106 H Pulse Rate [ From Monitor] Pulse Rate [ Left Dorsalis Pedis] Pulse Rate [ Right Dorsalis Pedis] Pulse Rate [ Right Radial] Respiratory 14 10 L Rate Blood Pressure 157/91 150/87 155/87 O2 Sat by Pulse 95 94 Oximetry 04/18/18 04/18/18 04/18/18 02:46 03:00 03:15 Temperature Pulse Rate 99 H 108 H 109 H Pulse Rate [ From Monitor] Pulse Rate [ Left Dorsalis Pedis] Pulse Rate [ Right Dorsalis Pedis] Pulse Rate [ Right Radial] Respiratory 12 8 L 13 Rate Blood Pressure 150/87 151/79 139/79 O2 Sat by Pulse 97 95 95 Oximetry 04/18/18 04/18/18 04/18/18 03:30 03:45 03:58 Temperature 97.8 F Pulse Rate 108 H 108 H Pulse Rate [ From Monitor] Pulse Rate [ Left Dorsalis Pedis] Pulse Rate [ Right Dorsalis Pedis] Pulse Rate [ Right Radial] Respiratory 20 17 Rate Blood Pressure 129/81 123/84 O2 Sat by Pulse 93 92 Oximetry 04/18/18 04/18/18 04/18/18 04:00 04:15 04:30 Temperature Pulse Rate 107 H 103 H 107 H Pulse Rate [ 109 H From Monitor] Pulse Rate [ 109 H Left Dorsalis Pedis] Pulse Rate [ 109 H Right Dorsalis Pedis] Pulse Rate [ 109 H Right Radial] Respiratory 22 15 15 Rate Blood Pressure 136/88 136/88 149/98 O2 Sat by Pulse 93 90 94 Oximetry 04/18/18 04/18/18 04/18/18 04:45 05:01 05:15 Temperature Pulse Rate 106 H 103 H 108 H Pulse Rate [ From Monitor] Pulse Rate [ Left Dorsalis Pedis] Pulse Rate [ Right Dorsalis Pedis] Pulse Rate [ Right Radial] Respiratory 31 H 29 H 18 Rate Blood Pressure 147/105 157/97 175/103 O2 Sat by Pulse 93 88 96 Oximetry 04/18/18 04/18/18 04/18/18 05:24 05:30 05:31 Temperature Pulse Rate 111 H 111 H Pulse Rate [ 104 H From Monitor] Pulse Rate [ 104 H Left Dorsalis Pedis] Pulse Rate [ 104 H Right Dorsalis Pedis] Pulse Rate [ 104 H Right Radial] Respiratory 15 23 Rate Blood Pressure 165/96 158/95 O2 Sat by Pulse 92 91 Oximetry 04/18/18 04/18/18 04/18/18 05:45 06:01 06:15 Temperature Pulse Rate 110 H 111 H 111 H Pulse Rate [ From Monitor] Pulse Rate [ Left Dorsalis Pedis] Pulse Rate [ Right Dorsalis Pedis] Pulse Rate [ Right Radial] Respiratory 13 13 12 Rate Blood Pressure 157/97 149/92 149/92 O2 Sat by Pulse 97 94 93 Oximetry 04/18/18 04/18/18 04/18/18 06:31 06:45 07:01 Temperature Pulse Rate 102 H 112 H 110 H Pulse Rate [ From Monitor] Pulse Rate [ Left Dorsalis Pedis] Pulse Rate [ Right Dorsalis Pedis] Pulse Rate [ Right Radial] Respiratory 15 8 L 14 Rate Blood Pressure 150/87 156/93 153/103 O2 Sat by Pulse 96 93 93 Oximetry 04/18/18 04/18/18 04/18/18 07:15 07:31 07:44 Temperature 98.1 F Pulse Rate 111 H 109 H Pulse Rate [ From Monitor] Pulse Rate [ Left Dorsalis Pedis] Pulse Rate [ Right Dorsalis Pedis] Pulse Rate [ Right Radial] Respiratory 17 15 Rate Blood Pressure 150/96 150/96 O2 Sat by Pulse 91 98 Oximetry 04/18/18 04/18/18 04/18/18 07:45 08:00 08:01 Temperature Pulse Rate 110 H 112 H Pulse Rate [ 109 H From Monitor] Pulse Rate [ Left Dorsalis Pedis] Pulse Rate [ Right Dorsalis Pedis] Pulse Rate [ Right Radial] Respiratory 28 H 13 20 Rate Blood Pressure 143/93 152/99 O2 Sat by Pulse 92 92 96 Oximetry 04/18/18 04/18/18 04/18/18 08:11 09:32 09:34 Temperature Pulse Rate 110 H 110 H Pulse Rate [ From Monitor] Pulse Rate [ Left Dorsalis Pedis] Pulse Rate [ Right Dorsalis Pedis] Pulse Rate [ Right Radial] Respiratory Rate Blood Pressure 164/94 164/94 O2 Sat by Pulse 98 Oximetry - General Appearance General appearance: well-developed EENT: mucous membranes moist Neck: no JVD Respiratory: Present: Decreased Breath Sounds Cardiology: regular Gastrointestinal: normoactive bowel sounds Neurologic: alert and oriented x3 Musculoskeletal: other (no edema, right IJ catheter) Psychiatric: mood/affect appropriate, cooperative - Lab 04/18/18 12:21 04/18/18 12:21 Most recent lab results Calcium 8.8 mg/dL (8.4-10.2) 04/17/18 16:13
--- NOTE | 2018-04-18 12:13 | Progress Note ---
Assessment and Plan Hypertensive emergency. Acute kidney injury. Aspiration pneumonia with predominant right lower lobe infiltrate in this gentleman with nausea and vomiting. Uncontrolled hypertension. Thrombocytopenia. Mild hyponatremia. Metabolic acidosis. Hyperglycemia. Elevated cardiac enzymes with elevated troponin levels. Hyperlipidemia. Obesity. Tobacco use disorder - repeat CXR re: bibasilar dullness - continue HD/UF per pelt grader's prescription for toxin and volume clearance - continue GI & VTE prophylaxis - schedule p.o. hydralazine (50mg p.o. tid) - seen by cardiology - follow 2D ECHO - prn oxygen for O2 Sats < 90% - continue empiric AB's for now (CRP and lactic acid low levels argue against true pneumonia but will follow blood cultures before stopping) - MRI suggests CADASIL syndrome; neurology evaluation appropriate - PT/OT as tolerated - continue nother care per attending / other consultants .... ok to transfer to telemetry floor ... 35' Subjective Date of service: 04/18/18 Principal diagnosis: Hypertensive Emergency; Acute Encephalopathy; GARRETT; Aspiration Pneumonitis Interval history: Patient is seen today for: Hypertensive Emergency; Acute Encephalopathy; GARRETT; Aspiration Pneumonitis Seen and examined at bedside; 24hour events reviewed; nursing and respiratory care staff consulted; no adverse overnight events reported to me; tolerated dialysis yesterday; BP's still on high side but off cardene drip; one episode of N&V earlier; denies acute chest pains or palpitations; CT venkatesh abnormal and MRI ordered Objective Vital Signs - 12hr 04/18/18 04/18/18 04/18/18 00:15 00:30 00:46 Temperature Pulse Rate 97 H 103 H 97 H Pulse Rate [ From Monitor] Pulse Rate [ Left Dorsalis Pedis] Pulse Rate [ Right Dorsalis Pedis] Pulse Rate [ Right Radial] Respiratory 8 L 18 12 Rate Blood Pressure 155/80 155/80 145/83 O2 Sat by Pulse 95 96 95 Oximetry 04/18/18 04/18/18 04/18/18 01:00 01:16 01:30 Temperature Pulse Rate 100 H 105 H 109 H Pulse Rate [ From Monitor] Pulse Rate [ Left Dorsalis Pedis] Pulse Rate [ Right Dorsalis Pedis] Pulse Rate [ Right Radial] Respiratory 8 L 8 L 12 Rate Blood Pressure 164/102 164/102 162/93 O2 Sat by Pulse 96 95 93 Oximetry 04/18/18 04/18/18 04/18/18 01:40 01:46 02:00 Temperature Pulse Rate 108 H 97 H Pulse Rate [ 106 H From Monitor] Pulse Rate [ 106 H Left Dorsalis Pedis] Pulse Rate [ 106 H Right Dorsalis Pedis] Pulse Rate [ 106 H Right Radial] Respiratory 23 11 L 13 Rate Blood Pressure 152/92 143/89 O2 Sat by Pulse 91 93 92 Oximetry 04/18/18 04/18/18 04/18/18 02:15 02:30 02:37 Temperature Pulse Rate 108 H 100 H 106 H Pulse Rate [ From Monitor] Pulse Rate [ Left Dorsalis Pedis] Pulse Rate [ Right Dorsalis Pedis] Pulse Rate [ Right Radial] Respiratory 14 10 L Rate Blood Pressure 157/91 150/87 155/87 O2 Sat by Pulse 95 94 Oximetry 04/18/18 04/18/18 04/18/18 02:46 03:00 03:15 Temperature Pulse Rate 99 H 108 H 109 H Pulse Rate [ From Monitor] Pulse Rate [ Left Dorsalis Pedis] Pulse Rate [ Right Dorsalis Pedis] Pulse Rate [ Right Radial] Respiratory 12 8 L 13 Rate Blood Pressure 150/87 151/79 139/79 O2 Sat by Pulse 97 95 95 Oximetry 04/18/18 04/18/18 04/18/18 03:30 03:45 03:58 Temperature 97.8 F Pulse Rate 108 H 108 H Pulse Rate [ From Monitor] Pulse Rate [ Left Dorsalis Pedis] Pulse Rate [ Right Dorsalis Pedis] Pulse Rate [ Right Radial] Respiratory 20 17 Rate Blood Pressure 129/81 123/84 O2 Sat by Pulse 93 92 Oximetry 04/18/18 04/18/18 04/18/18 04:00 04:15 04:30 Temperature Pulse Rate 107 H 103 H 107 H Pulse Rate [ 109 H From Monitor] Pulse Rate [ 109 H Left Dorsalis Pedis] Pulse Rate [ 109 H Right Dorsalis Pedis] Pulse Rate [ 109 H Right Radial] Respiratory 22 15 15 Rate Blood Pressure 136/88 136/88 149/98 O2 Sat by Pulse 93 90 94 Oximetry 04/18/18 04/18/18 04/18/18 04:45 05:01 05:15 Temperature Pulse Rate 106 H 103 H 108 H Pulse Rate [ From Monitor] Pulse Rate [ Left Dorsalis Pedis] Pulse Rate [ Right Dorsalis Pedis] Pulse Rate [ Right Radial] Respiratory 31 H 29 H 18 Rate Blood Pressure 147/105 157/97 175/103 O2 Sat by Pulse 93 88 96 Oximetry 04/18/18 04/18/18 04/18/18 05:24 05:30 05:31 Temperature Pulse Rate 111 H 111 H Pulse Rate [ 104 H From Monitor] Pulse Rate [ 104 H Left Dorsalis Pedis] Pulse Rate [ 104 H Right Dorsalis Pedis] Pulse Rate [ 104 H Right Radial] Respiratory 15 23 Rate Blood Pressure 165/96 158/95 O2 Sat by Pulse 92 91 Oximetry 04/18/18 04/18/18 04/18/18 05:45 06:01 06:15 Temperature Pulse Rate 110 H 111 H 111 H Pulse Rate [ From Monitor] Pulse Rate [ Left Dorsalis Pedis] Pulse Rate [ Right Dorsalis Pedis] Pulse Rate [ Right Radial] Respiratory 13 13 12 Rate Blood Pressure 157/97 149/92 149/92 O2 Sat by Pulse 97 94 93 Oximetry 04/18/18 04/18/18 04/18/18 06:31 06:45 07:01 Temperature Pulse Rate 102 H 112 H 110 H Pulse Rate [ From Monitor] Pulse Rate [ Left Dorsalis Pedis] Pulse Rate [ Right Dorsalis Pedis] Pulse Rate [ Right Radial] Respiratory 15 8 L 14 Rate Blood Pressure 150/87 156/93 153/103 O2 Sat by Pulse 96 93 93 Oximetry 04/18/18 04/18/18 04/18/18 07:15 07:31 07:44 Temperature 98.1 F Pulse Rate 111 H 109 H Pulse Rate [ From Monitor] Pulse Rate [ Left Dorsalis Pedis] Pulse Rate [ Right Dorsalis Pedis] Pulse Rate [ Right Radial] Respiratory 17 15 Rate Blood Pressure 150/96 150/96 O2 Sat by Pulse 91 98 Oximetry 04/18/18 04/18/18 04/18/18 07:45 08:00 08:01 Temperature Pulse Rate 110 H 112 H Pulse Rate [ 109 H From Monitor] Pulse Rate [ Left Dorsalis Pedis] Pulse Rate [ Right Dorsalis Pedis] Pulse Rate [ Right Radial] Respiratory 28 H 13 20 Rate Blood Pressure 143/93 152/99 O2 Sat by Pulse 92 92 96 Oximetry 04/18/18 04/18/18 04/18/18 08:11 08:15 08:31 Temperature Pulse Rate 111 H 111 H Pulse Rate [ From Monitor] Pulse Rate [ Left Dorsalis Pedis] Pulse Rate [ Right Dorsalis Pedis] Pulse Rate [ Right Radial] Respiratory 15 20 Rate Blood Pressure 152/99 166/103 O2 Sat by Pulse 98 98 94 Oximetry 04/18/18 04/18/18 04/18/18 08:45 09:00 09:15 Temperature Pulse Rate 108 H 107 H 111 H Pulse Rate [ From Monitor] Pulse Rate [ Left Dorsalis Pedis] Pulse Rate [ Right Dorsalis Pedis] Pulse Rate [ Right Radial] Respiratory 14 14 11 L Rate Blood Pressure 150/87 158/93 164/94 O2 Sat by Pulse 97 92 93 Oximetry 04/18/18 04/18/18 04/18/18 09:31 09:32 09:34 Temperature Pulse Rate 109 H 110 H 110 H Pulse Rate [ From Monitor] Pulse Rate [ Left Dorsalis Pedis] Pulse Rate [ Right Dorsalis Pedis] Pulse Rate [ Right Radial] Respiratory 12 Rate Blood Pressure 155/96 164/94 164/94 O2 Sat by Pulse 94 Oximetry 04/18/18 04/18/18 04/18/18 09:45 10:00 10:15 Temperature Pulse Rate 105 H 107 H 95 H Pulse Rate [ From Monitor] Pulse Rate [ Left Dorsalis Pedis] Pulse Rate [ Right Dorsalis Pedis] Pulse Rate [ Right Radial] Respiratory 10 L 12 16 Rate Blood Pressure 155/96 159/93 134/92 O2 Sat by Pulse 96 96 90 Oximetry 04/18/18 04/18/18 04/18/18 10:31 10:45 11:01 Temperature Pulse Rate 101 H 101 H 92 H Pulse Rate [ From Monitor] Pulse Rate [ Left Dorsalis Pedis] Pulse Rate [ Right Dorsalis Pedis] Pulse Rate [ Right Radial] Respiratory 14 14 26 H Rate Blood Pressure 142/91 153/87 142/89 O2 Sat by Pulse 92 95 96 Oximetry 04/18/18 11:15 Temperature Pulse Rate 101 H Pulse Rate [ From Monitor] Pulse Rate [ Left Dorsalis Pedis] Pulse Rate [ Right Dorsalis Pedis] Pulse Rate [ Right Radial] Respiratory 21 Rate Blood Pressure 142/89 O2 Sat by Pulse 89 Oximetry Constitutional: no acute distress, alert, other (young AAM, normocephalic and atraumatic talking in full sentences) Eyes: non-icteric ENT: oropharynx moist, other (mallampati 3) Neck: supple, no lymphadenopathy, no JVD, other (Right Subclavian tunnelled vas- cath) Effort: mildly labored Ascultation: Bilateral: clear, diminished breath sounds (bases) Percussion: Bilateral: not dull (bases) Cardiovascular: regular rate and rhythm, other (no R/M; + gallop) Gastrointestinal: normoactive bowel sounds, soft, non-tender, non-distended, other (No HSM) Integumentary: normal Extremities: no cyanosis, no edema, pulses normal, no ischemia or petechiae Neurologic: normal mental status, non-focal exam, pupils equal and round, motor strength normal and Psychiatric: mood appropriate, affect normal CBC and BMP: 04/18/18 12:21 04/18/18 12:21 Abnormal lab findings: Abnormal Labs 04/16/18 04/16/18 04/16/18 16:55 16:55 16:55 RBC Hgb Hct 35.1 L MCHC 35 H Plt Count 116 L Lymph % (Auto) 7.4 L [place] % (Auto) 8.3 H Lymph # 0.8 L Seg Neutrophils % 82.8 H Seg Neutrophils # 8.4 H Sodium 133 L Chloride 89.2 L Carbon Dioxide 18 L BUN 104 H Creatinine 19.1 H Glucose 139 H Troponin T 0.190 H* C-Reactive Protein NT-Pro-B Natriuret Pep > 98834 H Cholesterol 258 H LDL Cholesterol Direct 178 H HDL Cholesterol 60 H 04/16/18 04/16/18 04/17/18 19:28 22:01 16:13 RBC 3.25 L Hgb 10.0 L Hct 29.7 L MCHC Plt Count Lymph % (Auto) [place] % (Auto) Lymph # Seg Neutrophils % Seg Neutrophils # Sodium Chloride Carbon Dioxide BUN Creatinine Glucose Troponin T 0.149 H* D 0.171 H* C-Reactive Protein NT-Pro-B Natriuret Pep Cholesterol LDL Cholesterol Direct HDL Cholesterol 04/17/18 04/17/18 16:13 19:48 RBC Hgb Hct MCHC Plt Count Lymph % (Auto) [place] % (Auto) Lymph # Seg Neutrophils % Seg Neutrophils # Sodium 135 L Chloride 91.3 L Carbon Dioxide BUN 66 H Creatinine 14.6 H Glucose 120 H Troponin T C-Reactive Protein 2.70 H NT-Pro-B Natriuret Pep Cholesterol LDL Cholesterol Direct HDL Cholesterol Chest x-ray: pending Allied health notes reviewed: nursing
[2018-04-18 12:56] LABS: Basophils # (Auto) 0.1 K/mm3 (0.0-0.1); Basophils % (Auto) 1.4 % (0.0-1.8); Eosinophils # (Auto) 0.1 K/mm3 (0.0-0.4); Eosinophils % (Auto) 1.2 % (0.0-4.3); Hematocrit 29.3 % (35.5-45.6); Hemoglobin 9.8 gm/dl (11.8-15.2); Lymphocytes # (Auto) 0.9 K/mm3 (1.2-5.4); Mean Corpuscular HGB Conc 33 % (32-34); Mean Corpuscular Hemoglobin 31 pg (28-32); Mean Corpuscular Volume 93 fl (84-94); Monocytes # (Auto) 0.9 K/mm3 (0.0-0.8); Monocytes % (Auto) 11.4 % (0.0-7.3); Platelet Count 178 K/mm3 (140-440); Red Blood Count 3.14 M/mm3 (3.65-5.03); Red Cell Distribution Width 14.7 % (13.2-15.2)
[2018-04-18] MEDS ORDERED: APRESOLINE IV PRN (13:00)
[2018-04-18 13:15] LABS: Calcium 8.9 mg/dL (8.4-10.2)
[2018-04-18] MEDS ORDERED: APRESOLINE PO SCH (14:00)
--- NOTE | 2018-04-18 14:02 | Ultrasound Report ---
ULTRASOUND RENAL BILATERAL HISTORY: Renal failure. TECHNIQUE: transabdominal ultrasound with color Doppler interrogation. COMPARISON: none. FINDINGS: The right kidney measures 10.4cm. Right renal cortex: 1.0cm. The left kidney measures 10.4cm. Left renal cortex: 1.2cm. The kidneys are normal size, contour and position. Both kidneys are markedly echogenic with poor corticomedullary differentiation. A 1.0 cm simple exophytic cyst is noted from the inferior right kidney. No evidence for mass, nephrolithiasis, hydronephrosis or perinephric fluid. The views of the bladder and the region of the ureters appear normal. IMPRESSION: Echogenic kidneys consistent with nonspecific renal parenchymal disease or acute renal failure. No hydronephrosis. Right renal cyst.
[2018-04-18] MEDS: ECOTRIN PO SCH (14:46)
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
--- NOTE | 2018-04-18 15:22 | Magnetic Resonance Report ---
MRI BRAIN WITHOUT CONTRAST: 04/16/18 18:14:00 CLINICAL: Blurred vision TECHNIQUE: Axial diffusion, T1, T2, gradient echo T2*, coronal and axial FLAIR and sagittal T1 sequences on a 1.5 [place] magnet. FINDINGS: The frontal lobe sulci and lateral ventricles are large for age. Cavum septum pellucidum and cavum vergae which are normal variants of ventricular anatomy. A tiny linear focus of restricted diffusion in right frontal lobe white matter. This restricted diffusion is within the center of a large area of confluent white matter hyperintensity on T2 and FLAIR. Bilateral confluent white matter hyperintensities are particularly prominent in the paramedian frontal lobe white matter and are larger on the right side than the left. There is also abnormal diffuse hyperintense signal in the anterior matias on both T2 and FLAIR. No lacunar infarcts are identified. No mass or mass effect. No hemorrhage, edema or extra-axial collection. No chronic micro-bleeds. The pituitary is relatively small in the sella is filled with CSF. Normal optic chiasm. The cerebellum is normal except for focal left cerebellar white matter hyperintensity on T2 and FLAIR. Intact vascular flow voids. Normal sinuses. The orbits, and soft tissues are normal. Normal calvarium and skull base. IMPRESSION: 1. A tiny acute/subacute nonhemorrhagic infarct of the right frontal lobe white matter. 2. 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 3. Small pituitary and relatively empty sella. 4. Cavum septum pellucidum and cavum vergae which are normal variants of ventricular anatomy.
[2018-04-18] MEDS: APRESOLINE IV PRN (16:19)
--- NOTE | 2018-04-18 17:10 | XRay Report ---
FINAL REPORT EXAM: XR CHEST 1V AP HISTORY: pleural effusion; Shortness of breath TECHNIQUE: AP portable view of the chest PRIORS: CXR 04/16/2018 FINDINGS: Lines, tubes, and devices: Double-lumen right jugular catheter terminates in the proximal superior vena cava. Lungs and pleura: Trachea is normal in position. There been near complete resolution of the alveolar infiltrate seen previously in the right lung base. Mild residual still remains. Cardiomediastinal silhouette: Cardiac and mediastinal silhouettes are unremarkable. Other: Bony structures are intact. IMPRESSION: Marked improvement in a right lower lobe pneumonia. Mild residual still remains.
[2018-04-18] MEDS: ROCEPHIN/NS 1 GM/50 ML 1 GM/50 ML BAG IV SCH (19:09)
[2018-04-18] MEDS: ZITHROMAX 500 MG in NACL 0.9% 250ML 250 ML IV SCH (19:09)
[2018-04-18] MEDS: PROCARDIA XL PO SCH (20:00)
[2018-04-18] MEDS: NORMODYNE PO SCH (21:48)
[2018-04-18] MEDS: DIOVAN PO SCH (21:48)
[2018-04-19] MEDS: HEPARIN SUB-Q SCH ×3 (06:07→21:40)
[2018-04-19 08:20] LABS: Calcium 9.1 mg/dL (8.4-10.2); Hematocrit 27.9 % (35.5-45.6); Hemoglobin 9.5 gm/dl (11.8-15.2); Mean Corpuscular HGB Conc 34 % (32-34); Mean Corpuscular Hemoglobin 32 pg (28-32); Mean Corpuscular Volume 93 fl (84-94); Platelet Count 184 K/mm3 (140-440); Red Blood Count 3.01 M/mm3 (3.65-5.03); Red Cell Distribution Width 14.6 % (13.2-15.2)
--- NOTE | 2018-04-19 09:08 | Progress Note ---
Assessment and Plan - Patient Problems (1) Acute kidney injury superimposed on CKD Current Visit: Yes Status: Acute Plan to address problem: renal ultrasound- bilateral echogenic kidneys. Most likely ESRD. Needs outpatient HD arrangements at [facility] per pt request. 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 Pt was seen and examined during HD today .BP-166/95, P-85, afebrile via right IJ catheter (2) Hypertensive crisis Current Visit: Yes Status: Acute (3) RLL pneumonia Current Visit: Yes Status: Acute (4) Anemia in CKD (chronic kidney disease) Current Visit: Yes Status: Acute Subjective Date of service: 04/19/18 Principal diagnosis: Hypertensive Emergency; Acute Encephalopathy; GARRETT; Aspiration Pneumonitis Interval history: alert, oriented, denies CP or SOB, currently on HD Objective - Vital Signs Vital signs: Vital Signs - 12hr 04/18/18 04/18/18 04/18/18 21:48 22:00 22:44 Temperature Pulse Rate 97 H 97 H Pulse Rate [ 97 H From Monitor] Respiratory 18 Rate Blood Pressure 155/94 Blood Pressure [Left] O2 Sat by Pulse Oximetry 04/19/18 04/19/18 04/19/18 01:21 06:00 08:40 Temperature 98.9 F 97.6 F Pulse Rate 94 H 94 H Pulse Rate [ From Monitor] Respiratory 18 20 Rate Blood Pressure Blood Pressure 145/92 137/86 [Left] O2 Sat by Pulse 98 98 95 Oximetry - General Appearance General appearance: well-developed EENT: mucous membranes moist Neck: no JVD Respiratory: Present: Clear to Ascultation Cardiology: regular Gastrointestinal: normoactive bowel sounds Neurologic: alert and oriented x3 Psychiatric: mood/affect appropriate, cooperative - Lab 04/19/18 06:56 04/19/18 06:56 Most recent lab results Calcium 9.1 mg/dL (8.4-10.2) 04/19/18 06:56 - Imaging Kidney/bladder ultrasound: report reviewed
--- NOTE | 2018-04-19 09:35 | Progress Note ---
Assessment and Plan Assessment and plan: Hypertensive emergency Now on Labetalol, Procardia, valsartan. He is now off Cardene drip. Acute kidney injury, likely from ATN Nephrology following, Permacath placement by Vascular Started on hemodialysis Acute ischemic stroke right frontal Started on Aspirin. Neurology consulted. I discussed case with him, and he recommends MORELIA. Will consult cardiology for MORELIA RLL pneumonia cont IV antibiotics, supplemental oxygen, nebulizer therapy, Elevated troponin Consulted Cardiology Continue Aspirin daily Abnormal CT head, obtain MRI Metabolic Acidosis Monitor, should correct with HD Nicotine dependence Smoking cessation counseling. DVT prophylaxis with Heparin subcut. Full code status Medical non-compliance History Interval history: Patient with hypertensive emergency,acute kidney injury No chest pain No extremity weakness Hospitalist Physical - Physical exam Narrative exam: Gen : Not in acute distress,obese HEENT:Normocephalic, atraumatic Neck: supple, No JVD Lungs: Clear to auscultation, bilaterally, no rhonchi Heart :S1 and S2 reg, no murmurs, rubs or gallop Abd:soft, non tender, non distended, normal bowel sounds Ext: No edema, no clubbing, no cyanosis, Neuro: Awake,alert,oriented x 3, no focal signs Psych:normal mood - Constitutional Vitals: Temp Pulse Resp BP Pulse Ox 97.9 F 94 H 18 156/80 92 04/19/18 09:14 04/19/18 09:14 04/19/18 09:14 04/19/18 09:14 04/19/18 09:14 General appearance: Present: no acute distress, obese Results - Labs CBC & Chem 7: 04/19/18 06:56 04/19/18 06:56 Labs: Laboratory Last Values WBC 6.9 K/mm3 (4.5-11.0) 04/19/18 06:56 RBC 3.01 M/mm3 (3.65-5.03) L 04/19/18 06:56 Hgb 9.5 gm/dl (11.8-15.2) L 04/19/18 06:56 Hct 27.9 % (35.5-45.6) L 04/19/18 06:56 MCV 93 fl (84-94) 04/19/18 06:56 MCH 32 pg (28-32) 04/19/18 06:56 MCHC 34 % (32-34) 04/19/18 06:56 RDW 14.6 % (13.2-15.2) 04/19/18 06:56 Plt Count 184 K/mm3 (140-440) 04/19/18 06:56 Lymph % (Auto) 11.0 % (13.4-35.0) L 04/18/18 12:21 [place] % (Auto) 11.4 % (0.0-7.3) H 04/18/18 12:21 Eos % (Auto) 1.2 % (0.0-4.3) 04/18/18 12:21 Baso % (Auto) 1.4 % (0.0-1.8) 04/18/18 12:21 Lymph # 0.9 K/mm3 (1.2-5.4) L 04/18/18 12:21 [place] # 0.9 K/mm3 (0.0-0.8) H 04/18/18 12:21 Eos # 0.1 K/mm3 (0.0-0.4) 04/18/18 12:21 Baso # 0.1 K/mm3 (0.0-0.1) 04/18/18 12:21 Seg Neutrophils % 75.0 % (40.0-70.0) H 04/18/18 12:21 Seg Neutrophils # 6.0 K/mm3 (1.8-7.7) 04/18/18 12:21 Sodium 136 mmol/L (137-145) L 04/19/18 06:56 Potassium 4.1 mmol/L (3.6-5.0) 04/19/18 06:56 Chloride 91.8 mmol/L (98-107) L 04/19/18 06:56 Carbon Dioxide 20 mmol/L (22-30) L 04/19/18 06:56 Anion Gap 28 mmol/L 04/19/18 06:56 BUN 90 mg/dL (9-20) H 04/19/18 06:56 Creatinine 19.6 mg/dL (0.8-1.5) H 04/19/18 06:56 Estimated GFR 3 ml/min 04/19/18 06:56 BUN/Creatinine Ratio 5 % 04/19/18 06:56 Glucose 93 mg/dL (75-100) 04/19/18 06:56 Lactic Acid 1.10 mmol/L (0.7-2.0) 04/17/18 19:48 Calcium 9.1 mg/dL (8.4-10.2) 04/19/18 06:56 Troponin T 0.268 ng/mL (0.00-0.029) H* 04/19/18 01:00 C-Reactive Protein 2.70 mg/dL (0.00-1.30) H 04/17/18 19:48 NT-Pro-B Natriuret Pep > 37028 pg/mL (0-450) H 04/16/18 16:55 Triglycerides 139 mg/dL (2-149) 04/16/18 16:55 Cholesterol 258 mg/dL (50-199) H 04/16/18 16:55 LDL Cholesterol Direct 178 mg/dL (50-130) H 04/16/18 16:55 HDL Cholesterol 60 mg/dL (40-59) H 04/16/18 16:55 Cholesterol/HDL Ratio 4.30 % 04/16/18 16:55 TSH 2.110 mlU/mL (0.270-4.200) 04/17/18 19:48 Hepatitis A IgM Ab Non-reactive (NonReactive) 04/17/18 12:00 Hep Bs Antigen Non-reactive (Negative) 04/17/18 12:00 Hep B Core IgM Ab Non-reactive (NonReactive) 04/17/18 12:00 Hepatitis C Antibody Non-reactive (NonReactive) 04/17/18 12:00
[2018-04-19 09:52] LABS: Albumin 3.3 g/dL (3.9-5); Bilirubin,Direct 0.3 mg/dL (0-0.2)
[2018-04-19] MEDS ORDERED: NACL 0.9% 100 ML IV PRN (10:07)
--- NOTE | 2018-04-19 10:25 | Consultation ---
History of Present Illness Consult date: 04/19/18 Requesting physician: ISAURA KEARNEY Reason for Consult: Acute CVA. History of present illness: 37 years old right handed male with a past medical history of HTN, Nicotine Dependence, Medication Noncompliance for past 2 years presents to ED for evaluation. Pt states that he has experienced a nonproductive cough for the past 4 days with persistent symptoms over the same time frame. He also acknowledges blurred vision, headache, confusion, and shortness of breath. He states that he feels like his thinking is "slow". Pt seen and evaluated in ED and found to have Hypertensive Emergency with blood pressure of 259/187, as well as Acute Renal Failure, and Right Lung Pneumonia. Pt admitted to ICU, and initiated on cardene drip. He had a brain MRI, which showed right frontal acute v.c subacute infarcts. His NIHSS were zero. He is on dialysis when I saw him. Past History Past Medical History: hypertension Past Surgical History: Other (left Leg surgery) Social history: smoking, other (use alcohol and marijuana.) Family history: hypertension Medications and Allergies Allergies Allergy/AdvReac Type Severity Reaction Status Date / Time No Known Allergies Allergy Verified 04/16/18 16:41 Home Medications Medication Instructions Recorded Confirmed Last Taken Type No Known Home Medications [No 04/16/18 04/16/18 Unknown History Reported Home Medications] Active Meds: Active Medications Aspirin (Ecotrin) [address] [facility] Last Admin: 04/18/18 14:46 Dose: 325 mg Famotidine (Pepcid) [address] [facility] Last Admin: 04/18/18 09:34 Dose: 20 mg Heparin Sodium (Porcine) (Heparin) 5,000 unit SUB-Q Q8HR [facility] Last Admin: 04/19/18 06:07 Dose: 5,000 unit Hydralazine HCl (Apresoline) 10 mg IV Q6H PRN PRN Reason: SBP > 160 AND/OR DBP > 100 Last Admin: 04/18/18 16:19 Dose: 10 mg Azithromycin 500 mg/ Sodium (Chloride) 250 mls @ 250 mls/hr IV Q24H [facility]; Protocol Last Admin: 04/18/18 19:09 Dose: 250 mls/hr Ceftriaxone Sodium (Rocephin/Ns 1 Gm/50 Ml) 1 gm in 50 mls @ 100 mls/hr IV Q24H [facility]; Protocol Last Admin: 04/18/18 19:09 Dose: 100 mls/hr Sodium Chloride (Nacl 0.9%) 100 mls @ 999 mls/hr IV PANKAJ PRN PRN Reason: Hypotension Sodium Chloride (Nacl 0.9%) 100 mls @ 999 mls/hr IV PANKAJ PRN PRN Reason: Hypotension Labetalol HCl (Normodyne) [address] [facility] Last Admin: 04/18/18 21:48 Dose: 200 mg Nifedipine (Procardia Xl) [address] [facility] Last Admin: 04/18/18 20:00 Dose: 90 mg Sodium Chloride (Sodium Chloride Flush Syringe 10 Ml) [address] [facility] Last Admin: 04/18/18 22:00 Dose: 10 ml Sodium Chloride (Sodium Chloride Flush Syringe 10 Ml) 10 ml IV PRN PRN PRN Reason: LINE FLUSH Valsartan (Diovan) [address] [facility] Last Admin: 04/18/18 21:48 Dose: 160 mg Review of Systems All systems: negative Physical Examination - Vital Signs Vital Signs: Vital Signs Temp Pulse Resp BP Pulse Ox 98.4 F 124 H 18 253/181 98 04/16/18 16:32 04/16/18 16:32 04/16/18 16:32 04/16/18 16:32 04/16/18 16:32 - Constitutional General appearance: comfortable - EENT EENT: Present: ATNC, PERRL - Respiratory Respiratory: Present: chest non-tender, lungs clear - Cardiovascular Cardiovascular: Present: regular rate, no murmurs Extremities: Present: no peripheral edema bilatateraly, no clubbing, cyanosis - Gastrointestinal Gastrointestinal: Present: soft, non-tender, tender - Integumentary Integumentary: Present: normal - Neurologic Cranial nerve examination: PERRL, EOMI, intact Speech examination: intact Sensorimotor examination: intact Detailed motor examination: grossly full strength in Detailed sensory examination: intact Reflexes: 2+: ankle, bicep, knee, tricep - Psychiatric Psychiatric: Present: mood/affect appropriate Results - Laboratory Findings CBC and BMP: 04/19/18 06:56 04/19/18 06:56 Abnormal Lab Findings: Abnormal Labs 04/16/18 04/16/18 04/16/18 16:55 16:55 16:55 RBC Hgb Hct 35.1 L MCHC 35 H Plt Count 116 L Lymph % (Auto) 7.4 L [place] % (Auto) 8.3 H Lymph # 0.8 L [place] # Seg Neutrophils % 82.8 H Seg Neutrophils # 8.4 H Sodium 133 L Chloride 89.2 L Carbon Dioxide 18 L BUN 104 H Creatinine 19.1 H Glucose 139 H Direct Bilirubin Total Creatine Kinase Troponin T 0.190 H* C-Reactive Protein NT-Pro-B Natriuret Pep > 50475 H Total Protein Albumin Cholesterol 258 H LDL Cholesterol Direct 178 H HDL Cholesterol 60 H 04/16/18 04/16/18 04/17/18 19:28 22:01 16:13 RBC 3.25 L Hgb 10.0 L Hct 29.7 L MCHC Plt Count Lymph % (Auto) [place] % (Auto) Lymph # [place] # Seg Neutrophils % Seg Neutrophils # Sodium Chloride Carbon Dioxide BUN Creatinine Glucose Direct Bilirubin Total Creatine Kinase Troponin T 0.149 H* D 0.171 H* C-Reactive Protein NT-Pro-B Natriuret Pep Total Protein Albumin Cholesterol LDL Cholesterol Direct HDL Cholesterol 04/17/18 04/17/18 04/18/18 16:13 19:48 12:21 RBC 3.14 L Hgb 9.8 L Hct 29.3 L MCHC Plt Count Lymph % (Auto) 11.0 L [place] % (Auto) 11.4 H Lymph # 0.9 L [place] # 0.9 H Seg Neutrophils % 75.0 H Seg Neutrophils # Sodium 135 L Chloride 91.3 L Carbon Dioxide BUN 66 H Creatinine 14.6 H Glucose 120 H Direct Bilirubin Total Creatine Kinase Troponin T C-Reactive Protein 2.70 H NT-Pro-B Natriuret Pep Total Protein Albumin Cholesterol LDL Cholesterol Direct HDL Cholesterol 04/18/18 04/18/18 04/18/18 12:21 12:21 18:41 RBC Hgb Hct MCHC Plt Count Lymph % (Auto) [place] % (Auto) Lymph # [place] # Seg Neutrophils % Seg Neutrophils # Sodium 132 L Chloride 90.5 L Carbon Dioxide 20 L BUN 76 H Creatinine 17.7 H Glucose 107 H Direct Bilirubin Total Creatine Kinase Troponin T 0.236 H* D 0.261 H* C-Reactive Protein NT-Pro-B Natriuret Pep Total Protein Albumin Cholesterol LDL Cholesterol Direct HDL Cholesterol 04/19/18 04/19/18 04/19/18 01:00 06:56 06:56 RBC 3.01 L Hgb 9.5 L Hct 27.9 L MCHC Plt Count Lymph % (Auto) [place] % (Auto) Lymph # [place] # Seg Neutrophils % Seg Neutrophils # Sodium 136 L Chloride 91.8 L Carbon Dioxide 20 L BUN 90 H Creatinine 19.6 H Glucose Direct Bilirubin Total Creatine Kinase Troponin T 0.268 H* C-Reactive Protein NT-Pro-B Natriuret Pep Total Protein Albumin Cholesterol LDL Cholesterol Direct HDL Cholesterol 04/19/18 04/19/18 06:56 06:56 RBC Hgb Hct MCHC Plt Count Lymph % (Auto) [place] % (Auto) Lymph # [place] # Seg Neutrophils % Seg Neutrophils # Sodium Chloride Carbon Dioxide BUN Creatinine Glucose Direct Bilirubin 0.3 H Total Creatine Kinase 208 H Troponin T C-Reactive Protein NT-Pro-B Natriuret Pep Total Protein 6.0 L Albumin 3.3 L Cholesterol LDL Cholesterol Direct HDL Cholesterol Assessment and Plan 1. Blurry vision, slow thinking, headache, confusion. Resolved. Probably from hypertension urgency and encephalopathy. Improved. Control HTN. 2. Acute/subacute right frontal ischemic infarcts. NIHSS 0. Out of windows for TPA. 3. Carotid Doppler, lipid profile. Echo, EF 55-60%. Suggest MORELIA. 4. No OT/PT, rehab and speech needed. NIHSS 0. 5. GARRETT. Nephrology. 6. Education for compliance with medicines. 7. Substance abuse. Quit tobacco, alcohol and marijuana. 8. Pneumonia. Antibiotics. 9. Plan discussed with him, his nurse and his hospitalist. 10. If D/C, F/U with neurology in 4-6 weeks.
--- NOTE | 2018-04-19 11:02 | Progress Note ---
Assessment and Plan - Patient Problems (1) Hypertensive emergency Current Visit: Yes Status: Acute Plan to address problem: 37-year-old male with a history of chronic severe hypertension, noncompliant with medical therapy, presented with hypertensive emergency and acute renal failure. Chest x-ray was also notable for right lower lobe pneumonia. Dialysis has been initiated, and following further medical therapy he looks and feels better. We have recommended valsartan, Procardia XL and labetalol for blood pressure management, his systolic blood pressure today is 137. Echocardiogram revealed normal left ventricle systolic function with moderate concentric left ventricle hypertrophy. Cardiovascular status is stable. Subjective Date of service: 04/19/18 Principal diagnosis: Hypertensive Emergency; Acute Encephalopathy; GARRETT; Aspiration Pneumonitis Interval history: Patient is comfortable, no new cardiac complaints. Undergoing hemodialysis. Objective Vital Signs Temp Pulse Pulse Resp BP BP Pulse Ox 04/19/18 09:14 97.9 F 94 H 18 156/80 92 04/19/18 08:40 95 04/19/18 06:00 97.6 F 94 H 20 137/86 98 04/19/18 01:21 98.9 F 94 H 18 145/92 98 04/18/18 22:44 97 H 18 04/18/18 22:00 97 H 04/18/18 21:48 97 H 155/94 04/18/18 20:27 98 F 97 H 155/94 04/18/18 18:00 97.9 F 18 150/92 97 04/18/18 16:45 90 18 163/99 100 04/18/18 16:30 97 H 21 156/103 100 04/18/18 16:19 93 H 161/103 04/18/18 16:15 96 H 21 162/108 100 04/18/18 16:01 93 H 26 H 161/103 99 04/18/18 16:00 98.4 F 109 H 13 92 04/18/18 15:45 92 H 24 156/103 99 04/18/18 15:30 92 H 28 H 156/103 99 04/18/18 15:15 93 H 21 159/102 98 04/18/18 15:01 94 H 23 159/102 99 04/18/18 14:46 94 H 163/108 04/18/18 14:45 92 H 16 163/108 99 04/18/18 14:30 95 H 26 H 163/108 99 04/18/18 14:15 96 H 24 143/108 100 04/18/18 14:01 92 H 20 156/99 99 04/18/18 13:51 101 H 15 143/108 99 04/18/18 13:01 97 H 13 143/108 95 04/18/18 12:45 96 H 16 143/97 94 04/18/18 12:31 11 L 151/99 94 04/18/18 12:15 10 L 153/107 93 04/18/18 12:01 98 H 10 L 153/103 94 04/18/18 12:00 98.8 F 109 H 13 92 04/18/18 11:45 95 H 13 149/101 91 04/18/18 11:31 100 H 14 153/105 92 04/18/18 11:15 101 H 21 142/89 89 04/18/18 11:01 92 H 26 H 142/89 96 - Physical Examination General: No Apparent Distress HEENT: Positive: PERRL Neck: Positive: neck supple Cardiac: Positive: Reg Rate and Rhythm Lungs: Positive: Decreased Breath Sounds Neuro: Positive: Grossly Intact Abdomen: Positive: Soft Skin: Positive: Clear Extremities: Absent: edema - Labs and Meds Cardiac Enzymes 04/19/18 Range/Units 06:56 AST 15 (5-40) units/L CBC 04/18/18 04/19/18 Range/Units 12:21 06:56 WBC 8.0 6.9 (4.5-11.0) K/mm3 RBC 3.14 L 3.01 L (3.65-5.03) M/mm3 Hgb 9.8 L 9.5 L (11.8-15.2) gm/dl Hct 29.3 L 27.9 L (35.5-45.6) % Plt Count 178 184 (140-440) K/mm3 Lymph # 0.9 L (1.2-5.4) K/mm3 [place] # 0.9 H (0.0-0.8) K/mm3 Eos # 0.1 (0.0-0.4) K/mm3 Baso # 0.1 (0.0-0.1) K/mm3 Comprehensive Metabolic Panel 04/18/18 04/19/18 04/19/18 Range/Units 12:21 06:56 06:56 Sodium 132 L 136 L (137-145) mmol/L Potassium 4.2 4.1 (3.6-5.0) mmol/L Chloride 90.5 L 91.8 L (98-107) mmol/L Carbon Dioxide 20 L 20 L (22-30) mmol/L BUN 76 H 90 H (9-20) mg/dL Creatinine 17.7 H 19.6 H (0.8-1.5) mg/dL Glucose 107 H 93 (75-100) mg/dL Calcium 8.9 9.1 (8.4-10.2) mg/dL Direct Bilirubin 0.3 H (0-0.2) mg/dL Indirect Bilirubin 0.3 mg/dL AST 15 (5-40) units/L ALT 9 (7-56) units/L Alkaline Phosphatase 39 (35-129) units/L Total Protein 6.0 L (6.3-8.2) g/dL Albumin 3.3 L (3.9-5) g/dL - Allied health notes Allied health notes reviewed: nursing
[2018-04-19] MEDS ORDERED: NACL 0.9 (PRIMING MACHINE ONLY DIALYSIS) MC ONE (12:36)
--- NOTE | 2018-04-19 14:09 | Progress Note ---
Assessment and Plan Hypertensive emergency. Acute kidney injury. Aspiration pneumonia with predominant right lower lobe infiltrate in this gentleman with nausea and vomiting. Mild to Moderate Pulm HTN by 2D ECHO Uncontrolled hypertension. Thrombocytopenia. Mild hyponatremia. Metabolic acidosis. Hyperglycemia. Elevated cardiac enzymes with elevated troponin levels. Hyperlipidemia. Obesity. Tobacco use disorder - repeat CXR with significant improvement in RLL infiltrate and likely pulmonary edema - continue HD/UF per greek professor's prescription for toxin and volume clearance - continue GI & VTE prophylaxis - continue scheduled p.o. hydralazine - seen by cardiology - follow 2D ECHO - prn oxygen for O2 Sats < 90% - de-escalate AB's; will stop Zithromax today and Rocephin tomorrow if blood cultures still negative - MRI suggests CADASIL syndrome; neurology evaluation appropriate - PT/OT as tolerated - continue nother care per attending / other consultants .... ok to transfer to telemetry floor ... 37' Subjective Date of service: 04/19/18 Principal diagnosis: Hypertensive Emergency; Acute Encephalopathy; GARRETT; Aspiration Pneumonitis Interval history: Patient is seen today for: Hypertensive Emergency; Acute Encephalopathy; GARRETT; Aspiration Pneumonitis Seen and examined at bedside; 24hour events reviewed; nursing and respiratory care staff consulted; no adverse overnight events reported to me; resting peacefully; remains dialysis dependent; no emesis or overt aspiration so far today; no headache, seizures or other S&S of HTNsive encephalopathy Objective Vital Signs - 12hr 04/19/18 04/19/18 04/19/18 06:00 08:00 08:40 Temperature 97.6 F Pulse Rate 94 H 94 H Respiratory 20 Rate Blood Pressure Blood Pressure 137/86 [Left] O2 Sat by Pulse 98 95 Oximetry 04/19/18 04/19/18 04/19/18 09:14 09:40 10:00 Temperature 97.9 F 98.0 F Pulse Rate 94 H 92 H 90 Respiratory 18 18 Rate Blood Pressure 165/102 148/102 Blood Pressure 156/80 [Left] O2 Sat by Pulse 92 Oximetry 04/19/18 04/19/18 04/19/18 10:15 10:30 10:45 Temperature Pulse Rate 85 85 88 Respiratory Rate Blood Pressure 166/95 172/90 150/103 Blood Pressure [Left] O2 Sat by Pulse Oximetry 04/19/18 04/19/18 04/19/18 11:00 11:15 11:30 Temperature Pulse Rate 90 91 H 87 Respiratory Rate Blood Pressure 162/100 167/100 152/102 Blood Pressure [Left] O2 Sat by Pulse Oximetry 04/19/18 04/19/18 04/19/18 11:45 12:00 12:15 Temperature Pulse Rate 87 88 87 Respiratory Rate Blood Pressure 158/96 161/97 144/101 Blood Pressure [Left] O2 Sat by Pulse Oximetry Constitutional: no acute distress, alert, other (young AAM, normocephalic and atraumatic talking in full sentences) Eyes: non-icteric ENT: oropharynx moist, other (mallampati 3) Neck: supple, no lymphadenopathy, no JVD, other (Right Subclavian tunnelled vas- cath) Effort: mildly labored Ascultation: Bilateral: clear, diminished breath sounds (bases) Percussion: Bilateral: not dull (bases) Cardiovascular: regular rate and rhythm, other (no R/M; + gallop) Gastrointestinal: soft, non-tender, tender Integumentary: normal Extremities: no cyanosis, no edema, pulses normal, no ischemia or petechiae Neurologic: normal mental status, non-focal exam, pupils equal and round, motor strength normal and Psychiatric: mood appropriate, affect normal CBC and BMP: 04/21/18 05:53 04/22/18 07:30 Abnormal lab findings: Abnormal Labs 04/16/18 04/16/18 04/16/18 16:55 16:55 16:55 RBC Hgb Hct 35.1 L MCHC 35 H Plt Count 116 L Lymph % (Auto) 7.4 L [place] % (Auto) 8.3 H Lymph # 0.8 L [place] # Seg Neutrophils % 82.8 H Seg Neutrophils # 8.4 H Sodium 133 L Chloride 89.2 L Carbon Dioxide 18 L BUN 104 H Creatinine 19.1 H Glucose 139 H Direct Bilirubin Total Creatine Kinase Troponin T 0.190 H* C-Reactive Protein NT-Pro-B Natriuret Pep > 39876 H Total Protein Albumin Cholesterol 258 H LDL Cholesterol Direct 178 H HDL Cholesterol 60 H 04/16/18 04/16/18 04/17/18 19:28 22:01 16:13 RBC 3.25 L Hgb 10.0 L Hct 29.7 L MCHC Plt Count Lymph % (Auto) [place] % (Auto) Lymph # [place] # Seg Neutrophils % Seg Neutrophils # Sodium Chloride Carbon Dioxide BUN Creatinine Glucose Direct Bilirubin Total Creatine Kinase Troponin T 0.149 H* D 0.171 H* C-Reactive Protein NT-Pro-B Natriuret Pep Total Protein Albumin Cholesterol LDL Cholesterol Direct HDL Cholesterol 04/17/18 04/17/18 04/18/18 16:13 19:48 12:21 RBC 3.14 L Hgb 9.8 L Hct 29.3 L MCHC Plt Count Lymph % (Auto) 11.0 L [place] % (Auto) 11.4 H Lymph # 0.9 L [place] # 0.9 H Seg Neutrophils % 75.0 H Seg Neutrophils # Sodium 135 L Chloride 91.3 L Carbon Dioxide BUN 66 H Creatinine 14.6 H Glucose 120 H Direct Bilirubin Total Creatine Kinase Troponin T C-Reactive Protein 2.70 H NT-Pro-B Natriuret Pep Total Protein Albumin Cholesterol LDL Cholesterol Direct HDL Cholesterol 04/18/18 04/18/18 04/18/18 12:21 12:21 18:41 RBC Hgb Hct MCHC Plt Count Lymph % (Auto) [place] % (Auto) Lymph # [place] # Seg Neutrophils % Seg Neutrophils # Sodium 132 L Chloride 90.5 L Carbon Dioxide 20 L BUN 76 H Creatinine 17.7 H Glucose 107 H Direct Bilirubin Total Creatine Kinase Troponin T 0.236 H* D 0.261 H* C-Reactive Protein NT-Pro-B Natriuret Pep Total Protein Albumin Cholesterol LDL Cholesterol Direct HDL Cholesterol 04/19/18 04/19/18 04/19/18 01:00 06:56 06:56 RBC 3.01 L Hgb 9.5 L Hct 27.9 L MCHC Plt Count Lymph % (Auto) [place] % (Auto) Lymph # [place] # Seg Neutrophils % Seg Neutrophils # Sodium 136 L Chloride 91.8 L Carbon Dioxide 20 L BUN 90 H Creatinine 19.6 H Glucose Direct Bilirubin Total Creatine Kinase Troponin T 0.268 H* C-Reactive Protein NT-Pro-B Natriuret Pep Total Protein Albumin Cholesterol LDL Cholesterol Direct HDL Cholesterol 04/19/18 04/19/18 06:56 06:56 RBC Hgb Hct MCHC Plt Count Lymph % (Auto) [place] % (Auto) Lymph # [place] # Seg Neutrophils % Seg Neutrophils # Sodium Chloride Carbon Dioxide BUN Creatinine Glucose Direct Bilirubin 0.3 H Total Creatine Kinase 208 H Troponin T C-Reactive Protein NT-Pro-B Natriuret Pep Total Protein 6.0 L Albumin 3.3 L Cholesterol LDL Cholesterol Direct HDL Cholesterol Allied health notes reviewed: nursing
[2018-04-19] MEDS: PEPCID PO SCH (14:31)
[2018-04-19] MEDS: PROCARDIA XL PO SCH (14:31)
[2018-04-19] MEDS: NORMODYNE PO SCH ×2 (14:31→21:31)
[2018-04-19] MEDS: DIOVAN PO SCH ×2 (14:31→21:31)
[2018-04-19] MEDS: ECOTRIN PO SCH (14:32)
[2018-04-19] MEDS: SODIUM CHLORIDE FLUSH SYRINGE 10 ML IV SCH ×2 (14:32→21:40)
[2018-04-19] MEDS: ROCEPHIN/NS 1 GM/50 ML 1 GM/50 ML BAG IV SCH (22:32)
[2018-04-20] MEDS: HEPARIN SUB-Q SCH ×3 (06:31→22:11)
[2018-04-20 07:09] LABS: Hematocrit 30.2 % (35.5-45.6); Hemoglobin 10.2 gm/dl (11.8-15.2); Mean Corpuscular HGB Conc 34 % (32-34); Mean Corpuscular Hemoglobin 31 pg (28-32); Mean Corpuscular Volume 93 fl (84-94); Platelet Count 195 K/mm3 (140-440); Red Blood Count 3.24 M/mm3 (3.65-5.03); Red Cell Distribution Width 14.1 % (13.2-15.2)
[2018-04-20 07:34] LABS: Calcium 8.9 mg/dL (8.4-10.2)
--- NOTE | 2018-04-20 08:58 | Progress Note ---
Assessment and Plan - Patient Problems (1) Acute kidney injury superimposed on CKD Current Visit: Yes Status: Acute Plan to address problem: renal ultrasound- bilateral echogenic kidneys. ESRD. Needs outpatient HD arrangements at [facility] per pt request. 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 Pt has right IJ catheter. Discussed about PD option with pt, interested, spoke with PD nurse at [place]. Spoke with behavioral health case manager about outpt HD. Informed (2) Hypertensive crisis Current Visit: Yes Status: Acute Plan to address problem: optimise BP meds (3) RLL pneumonia Current Visit: Yes Status: Acute (4) Anemia in CKD (chronic kidney disease) Current Visit: Yes Status: Acute Subjective Date of service: 04/20/18 Principal diagnosis: Hypertensive Emergency; Acute Encephalopathy; GARRETT; Aspiration Pneumonitis Interval history: alert, oriented, denies CP or SOB Objective - Vital Signs Vital signs: Vital Signs - 12hr 04/19/18 04/19/18 04/20/18 22:00 23:24 01:12 Temperature 98.1 F Pulse Rate 89 84 Pulse Rate [ Apical] Pulse Rate [ 84 Right Radial] Respiratory 18 18 Rate Blood Pressure 142/99 O2 Sat by Pulse 99 Oximetry 04/20/18 04/20/18 04/20/18 05:23 07:45 08:00 Temperature 98.2 F 97.8 F Pulse Rate 91 H Pulse Rate [ Apical] Pulse Rate [ Right Radial] Respiratory 18 18 Rate Blood Pressure 155/97 153/99 O2 Sat by Pulse 98 Oximetry 04/20/18 08:28 Temperature Pulse Rate 89 Pulse Rate [ 89 Apical] Pulse Rate [ Right Radial] Respiratory Rate Blood Pressure O2 Sat by Pulse Oximetry - General Appearance General appearance: well-developed EENT: mucous membranes moist Neck: no JVD Respiratory: Present: Clear to Ascultation Cardiology: regular Gastrointestinal: normoactive bowel sounds Musculoskeletal: other (no edema) - Lab 04/20/18 06:48 04/20/18 06:48 Most recent lab results Calcium 8.9 mg/dL (8.4-10.2) 04/20/18 06:48
--- NOTE | 2018-04-20 10:31 | Progress Note ---
Assessment and Plan Assessment and plan: Hypertensive emergency Now on Labetalol, Procardia, valsartan. He is now off Cardene drip. BP fluctuating Acute kidney injury, likely from ATN Nephrology following, Permacath placement by Vascular Started on hemodialysis Acute ischemic stroke right frontal Started on Aspirin. Neurology consulted. I discussed case with him, and he recommends MORELIA. Will consult cardiology for MORELIA RLL pneumonia cont IV antibiotics, supplemental oxygen, nebulizer therapy, Elevated troponin Consulted Cardiology Continue Aspirin daily Abnormal CT head, obtain MRI Metabolic Acidosis Monitor, should correct with HD Nicotine dependence Smoking cessation counseling. DVT prophylaxis with Heparin subcut. Full code status Medical non-compliance History Interval history: Patient with hypertensive emergency,acute kidney injury No chest pain No extremity weakness Hospitalist Physical - Physical exam Narrative exam: Gen : Not in acute distress,obese HEENT:Normocephalic, atraumatic Neck: supple, No JVD Lungs: Clear to auscultation, bilaterally, no rhonchi Heart :S1 and S2 reg, no murmurs, rubs or gallop Abd:soft, non tender, non distended, normal bowel sounds Ext: No edema, no clubbing, no cyanosis, Neuro: Awake,alert,oriented x 3, no focal signs Psych:normal mood - Constitutional Vitals: Temp Pulse Resp BP Pulse Ox 97.8 F 89 18 153/99 98 04/20/18 08:00 04/20/18 08:28 04/20/18 07:45 04/20/18 07:45 04/20/18 07:45 General appearance: Present: no acute distress, obese Results - Labs CBC & Chem 7: 04/21/18 05:53 04/21/18 05:53 Labs: Laboratory Last Values WBC 5.6 K/mm3 (4.5-11.0) 04/20/18 06:48 RBC 3.24 M/mm3 (3.65-5.03) L 04/20/18 06:48 Hgb 10.2 gm/dl (11.8-15.2) L 04/20/18 06:48 Hct 30.2 % (35.5-45.6) L 04/20/18 06:48 MCV 93 fl (84-94) 04/20/18 06:48 MCH 31 pg (28-32) 04/20/18 06:48 MCHC 34 % (32-34) 04/20/18 06:48 RDW 14.1 % (13.2-15.2) 04/20/18 06:48 Plt Count 195 K/mm3 (140-440) 04/20/18 06:48 Lymph % (Auto) 11.0 % (13.4-35.0) L 04/18/18 12:21 [place] % (Auto) 11.4 % (0.0-7.3) H 04/18/18 12:21 Eos % (Auto) 1.2 % (0.0-4.3) 04/18/18 12:21 Baso % (Auto) 1.4 % (0.0-1.8) 04/18/18 12:21 Lymph # 0.9 K/mm3 (1.2-5.4) L 04/18/18 12:21 [place] # 0.9 K/mm3 (0.0-0.8) H 04/18/18 12:21 Eos # 0.1 K/mm3 (0.0-0.4) 04/18/18 12:21 Baso # 0.1 K/mm3 (0.0-0.1) 04/18/18 12:21 Seg Neutrophils % 75.0 % (40.0-70.0) H 04/18/18 12:21 Seg Neutrophils # 6.0 K/mm3 (1.8-7.7) 04/18/18 12:21 Sodium 138 mmol/L (137-145) 04/20/18 06:48 Potassium 4.0 mmol/L (3.6-5.0) 04/20/18 06:48 Chloride 93.8 mmol/L (98-107) L 04/20/18 06:48 Carbon Dioxide 24 mmol/L (22-30) 04/20/18 06:48 Anion Gap 24 mmol/L 04/20/18 06:48 BUN 59 mg/dL (9-20) H 04/20/18 06:48 Creatinine 13.7 mg/dL (0.8-1.5) H 04/20/18 06:48 Estimated GFR 5 ml/min 04/20/18 06:48 BUN/Creatinine Ratio 4 % 04/20/18 06:48 Glucose 97 mg/dL (75-100) 04/20/18 06:48 Lactic Acid 1.10 mmol/L (0.7-2.0) 04/17/18 19:48 Calcium 8.9 mg/dL (8.4-10.2) 04/20/18 06:48 Total Bilirubin 0.60 mg/dL (0.1-1.2) 04/19/18 06:56 Direct Bilirubin 0.3 mg/dL (0-0.2) H 04/19/18 06:56 Indirect Bilirubin 0.3 mg/dL 04/19/18 06:56 AST 15 units/L (5-40) 04/19/18 06:56 ALT 9 units/L (7-56) 04/19/18 06:56 Alkaline Phosphatase 39 units/L (35-129) 04/19/18 06:56 Total Creatine Kinase 208 units/L (55-170) H 04/19/18 06:56 Troponin T 0.268 ng/mL (0.00-0.029) H* 04/19/18 01:00 C-Reactive Protein 2.70 mg/dL (0.00-1.30) H 04/17/18 19:48 NT-Pro-B Natriuret Pep > 05805 pg/mL (0-450) H 04/16/18 16:55 Total Protein 6.0 g/dL (6.3-8.2) L 04/19/18 06:56 Albumin 3.3 g/dL (3.9-5) L 04/19/18 06:56 Albumin/Globulin Ratio 1.2 % 04/19/18 06:56 Triglycerides 139 mg/dL (2-149) 04/16/18 16:55 Cholesterol 258 mg/dL (50-199) H 04/16/18 16:55 LDL Cholesterol Direct 178 mg/dL (50-130) H 04/16/18 16:55 HDL Cholesterol 60 mg/dL (40-59) H 04/16/18 16:55 Cholesterol/HDL Ratio 4.30 % 04/16/18 16:55 TSH 2.110 mlU/mL (0.270-4.200) 04/17/18 19:48 Hepatitis A IgM Ab Non-reactive (NonReactive) 04/17/18 12:00 Hep Bs Antigen Non-reactive (Negative) 04/17/18 12:00 Hep B Core IgM Ab Non-reactive (NonReactive) 04/17/18 12:00 Hepatitis C Antibody Non-reactive (NonReactive) 04/17/18 12:00
--- NOTE | 2018-04-20 11:20 | Progress Note ---
Assessment and Plan 1. Blurry vision, slow thinking, headache, confusion. Resolved. Probably from hypertension urgency and encephalopathy. Improved. Control HTN. 2. Acute/subacute right frontal ischemic infarcts. NIHSS 0. Out of windows for TPA. 3. 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 Need further work up, Notch 3 transmembrance receptor or skin biopsy. He agreed to make appointment with [place] neurology to have these further studies. 4. Pending Carotid Doppler, lipid profile. Echo, EF 55-60%. Suggest MORELIA. 5. No OT/PT, rehab and speech needed. NIHSS 0. 6. GARRETT. Nephrology. 7. Education for compliance with medicines. 8. Substance abuse. Quit tobacco, alcohol and marijuana. 9. Pneumonia. Antibiotics. 10. Treat risk factors of CVA. Continue baby Aspirin 81 mg daily. 11. Plan discussed with him. 12. If D/C, F/U with neurology in 4-6 weeks. Subjective Principal diagnosis: Hypertensive Emergency; Acute Encephalopathy; GARRETT; Aspiration Pneumonitis Objective - Vital Sign Vital Signs - 12hr 04/19/18 04/20/18 04/20/18 23:24 01:12 05:23 Temperature 98.1 F 98.2 F Pulse Rate 84 Pulse Rate [ Apical] Pulse Rate [ 84 Right Radial] Respiratory 18 18 18 Rate Blood Pressure 142/99 155/97 O2 Sat by Pulse 99 Oximetry 04/20/18 04/20/18 04/20/18 07:45 08:00 08:28 Temperature 97.8 F Pulse Rate 91 H 89 Pulse Rate [ 89 Apical] Pulse Rate [ Right Radial] Respiratory 18 Rate Blood Pressure 153/99 O2 Sat by Pulse 98 Oximetry - Laboratory Findings CBC and BMP: 04/20/18 06:48 04/20/18 06:48 Abnormal Lab Findings: Abnormal Labs 04/16/18 04/16/18 04/16/18 16:55 16:55 16:55 RBC Hgb Hct 35.1 L MCHC 35 H Plt Count 116 L Lymph % (Auto) 7.4 L [place] % (Auto) 8.3 H Lymph # 0.8 L [place] # Seg Neutrophils % 82.8 H Seg Neutrophils # 8.4 H Sodium 133 L Chloride 89.2 L Carbon Dioxide 18 L BUN 104 H Creatinine 19.1 H Glucose 139 H Direct Bilirubin Total Creatine Kinase Troponin T 0.190 H* C-Reactive Protein NT-Pro-B Natriuret Pep > 85726 H Total Protein Albumin Cholesterol 258 H LDL Cholesterol Direct 178 H HDL Cholesterol 60 H 04/16/18 04/16/18 04/17/18 19:28 22:01 16:13 RBC 3.25 L Hgb 10.0 L Hct 29.7 L MCHC Plt Count Lymph % (Auto) [place] % (Auto) Lymph # [place] # Seg Neutrophils % Seg Neutrophils # Sodium Chloride Carbon Dioxide BUN Creatinine Glucose Direct Bilirubin Total Creatine Kinase Troponin T 0.149 H* D 0.171 H* C-Reactive Protein NT-Pro-B Natriuret Pep Total Protein Albumin Cholesterol LDL Cholesterol Direct HDL Cholesterol 04/17/18 04/17/18 04/18/18 16:13 19:48 12:21 RBC 3.14 L Hgb 9.8 L Hct 29.3 L MCHC Plt Count Lymph % (Auto) 11.0 L [place] % (Auto) 11.4 H Lymph # 0.9 L [place] # 0.9 H Seg Neutrophils % 75.0 H Seg Neutrophils # Sodium 135 L Chloride 91.3 L Carbon Dioxide BUN 66 H Creatinine 14.6 H Glucose 120 H Direct Bilirubin Total Creatine Kinase Troponin T C-Reactive Protein 2.70 H NT-Pro-B Natriuret Pep Total Protein Albumin Cholesterol LDL Cholesterol Direct HDL Cholesterol 04/18/18 04/18/18 04/18/18 12:21 12:21 18:41 RBC Hgb Hct MCHC Plt Count Lymph % (Auto) [place] % (Auto) Lymph # [place] # Seg Neutrophils % Seg Neutrophils # Sodium 132 L Chloride 90.5 L Carbon Dioxide 20 L BUN 76 H Creatinine 17.7 H Glucose 107 H Direct Bilirubin Total Creatine Kinase Troponin T 0.236 H* D 0.261 H* C-Reactive Protein NT-Pro-B Natriuret Pep Total Protein Albumin Cholesterol LDL Cholesterol Direct HDL Cholesterol 04/19/18 04/19/18 04/19/18 01:00 06:56 06:56 RBC 3.01 L Hgb 9.5 L Hct 27.9 L MCHC Plt Count Lymph % (Auto) [place] % (Auto) Lymph # [place] # Seg Neutrophils % Seg Neutrophils # Sodium 136 L Chloride 91.8 L Carbon Dioxide 20 L BUN 90 H Creatinine 19.6 H Glucose Direct Bilirubin Total Creatine Kinase Troponin T 0.268 H* C-Reactive Protein NT-Pro-B Natriuret Pep Total Protein Albumin Cholesterol LDL Cholesterol Direct HDL Cholesterol 04/19/18 04/19/18 04/20/18 06:56 06:56 06:48 RBC 3.24 L Hgb 10.2 L Hct 30.2 L MCHC Plt Count Lymph % (Auto) [place] % (Auto) Lymph # [place] # Seg Neutrophils % Seg Neutrophils # Sodium Chloride Carbon Dioxide BUN Creatinine Glucose Direct Bilirubin 0.3 H Total Creatine Kinase 208 H Troponin T C-Reactive Protein NT-Pro-B Natriuret Pep Total Protein 6.0 L Albumin 3.3 L Cholesterol LDL Cholesterol Direct HDL Cholesterol 04/20/18 06:48 RBC Hgb Hct MCHC Plt Count Lymph % (Auto) [place] % (Auto) Lymph # [place] # Seg Neutrophils % Seg Neutrophils # Sodium Chloride 93.8 L Carbon Dioxide BUN 59 H Creatinine 13.7 H Glucose Direct Bilirubin Total Creatine Kinase Troponin T C-Reactive Protein NT-Pro-B Natriuret Pep Total Protein Albumin Cholesterol LDL Cholesterol Direct HDL Cholesterol
[2018-04-20] MEDS: NORMODYNE PO SCH ×2 (12:47→22:11)
[2018-04-20] MEDS: DIOVAN PO SCH ×2 (12:47→22:11)
[2018-04-20] MEDS: PEPCID PO SCH (12:48)
[2018-04-20] MEDS: SODIUM CHLORIDE FLUSH SYRINGE 10 ML IV SCH ×2 (12:48→22:12)
[2018-04-20] MEDS: PROCARDIA XL PO SCH (12:48)
[2018-04-20] MEDS: BABY ASPIRIN PO SCH (12:48)
--- NOTE | 2018-04-20 13:55 | Progress Note ---
Assessment and Plan - Patient Problems (1) Hypertensive emergency Current Visit: Yes Status: Acute Plan to address problem: 37-year-old male with a history of chronic severe hypertension, noncompliant with medical therapy, presented with hypertensive emergency and acute renal failure. Chest x-ray was also notable for right lower lobe pneumonia. Dialysis has been initiated, and following further medical therapy he looks and feels better. We have recommended valsartan, Procardia XL and labetalol for blood pressure management, his systolic blood pressure today is 137. Echocardiogram revealed normal left ventricle systolic function with moderate concentric left ventricle hypertrophy. Cardiovascular status is stable. Subjective Date of service: 04/20/18 Principal diagnosis: Hypertensive Emergency; Acute Encephalopathy; GARRETT; Aspiration Pneumonitis Interval history: Patient looks and feels comfortable, no cardiac complaints. Blood pressure is 153 systolic. Objective Vital Signs Temp Pulse Pulse Pulse Resp BP BP 04/20/18 12:30 82 18 138/95 04/20/18 12:00 97.7 F 04/20/18 08:28 89 89 04/20/18 08:00 97.8 F 04/20/18 07:45 91 H 18 153/99 04/20/18 05:23 98.2 F 18 155/97 04/20/18 01:12 84 18 04/19/18 23:24 98.1 F 84 18 142/99 04/19/18 22:00 89 04/19/18 19:50 98.4 F 89 18 160/99 04/19/18 16:25 97.6 F 88 18 128/89 04/19/18 15:38 97.6 F 88 18 128/89 Pulse Ox 04/20/18 12:30 95 04/20/18 12:00 04/20/18 08:28 04/20/18 08:00 04/20/18 07:45 98 04/20/18 05:23 04/20/18 01:12 04/19/18 23:24 99 04/19/18 22:00 04/19/18 19:50 98 04/19/18 16:25 99 04/19/18 15:38 99 - Physical Examination General: No Apparent Distress HEENT: Positive: PERRL Neck: Positive: neck supple Cardiac: Positive: Reg Rate and Rhythm Lungs: Positive: Decreased Breath Sounds Neuro: Positive: Grossly Intact Abdomen: Positive: Soft Skin: Positive: Clear Extremities: Absent: edema - Labs and Meds CBC 04/20/18 Range/Units 06:48 WBC 5.6 (4.5-11.0) K/mm3 RBC 3.24 L (3.65-5.03) M/mm3 Hgb 10.2 L (11.8-15.2) gm/dl Hct 30.2 L (35.5-45.6) % Plt Count 195 (140-440) K/mm3 Comprehensive Metabolic Panel 04/20/18 Range/Units 06:48 Sodium 138 (137-145) mmol/L Potassium 4.0 (3.6-5.0) mmol/L Chloride 93.8 L (98-107) mmol/L Carbon Dioxide 24 (22-30) mmol/L BUN 59 H (9-20) mg/dL Creatinine 13.7 H (0.8-1.5) mg/dL Glucose 97 (75-100) mg/dL Calcium 8.9 (8.4-10.2) mg/dL - Allied health notes Allied health notes reviewed: nursing
--- NOTE | 2018-04-20 18:28 | Progress Note ---
Assessment and Plan Patient alert,awake. Resting on room air.O2 saturation 99%. No complaint of chest pain,shortness of breath or cough. - Patient Problems (1) RLL pneumonia Current Visit: Yes Status: Acute Plan to address problem: Improving. Patient is on ceftrioxone. (2) Acute kidney injury superimposed on CKD Current Visit: Yes Status: Acute Plan to address problem: Management as per nephrology. (3) Anemia in CKD (chronic kidney disease) Current Visit: Yes Status: Acute Plan to address problem: Mangement as per primary care and nephrology. (4) Hypertensive emergency Current Visit: Yes Status: Acute Plan to address problem: Blood pressure improving. (5) Nicotine dependence Current Visit: Yes Status: Acute Qualifiers: Substance use status: in withdrawal Plan to address problem: Counselled to stop smoking. Subjective Date of service: 04/20/18 Principal diagnosis: Hypertensive Emergency; Acute Encephalopathy; GARRETT; Aspiration Pneumonitis Interval history: Patient alert,awake. Resting on room air.O2 saturation 99%. No complaint of chest pain,shortness of breath or cough. Objective Vital Signs - 12hr 04/20/18 04/20/18 04/20/18 07:45 08:00 08:28 Temperature 97.8 F Pulse Rate 91 H 89 Pulse Rate [ 89 Apical] Respiratory 18 Rate Blood Pressure 153/99 O2 Sat by Pulse 98 Oximetry 04/20/18 04/20/18 04/20/18 12:00 12:30 16:00 Temperature 97.7 F 98.1 F Pulse Rate 82 Pulse Rate [ Apical] Respiratory 18 Rate Blood Pressure 138/95 O2 Sat by Pulse 95 Oximetry 04/20/18 16:14 Temperature Pulse Rate 82 Pulse Rate [ Apical] Respiratory 18 Rate Blood Pressure 154/107 O2 Sat by Pulse 99 Oximetry Constitutional: no acute distress, alert, other (young AAM, normocephalic and atraumatic talking in full sentences) Eyes: non-icteric ENT: oropharynx moist, other (mallampati 3) Neck: supple, no lymphadenopathy, no JVD, other (Right Subclavian tunnelled vas- cath) Effort: mildly labored Ascultation: Right: rhonchi (Few rhonchi right base.), Bilateral: diminished breath sounds (bases) Percussion: Bilateral: not dull (bases) Cardiovascular: regular rate and rhythm, other (no R/M; + gallop) Gastrointestinal: soft, non-tender, tender Integumentary: normal Extremities: no cyanosis, no edema, pulses normal, no ischemia or petechiae Neurologic: normal mental status, non-focal exam, pupils equal and round, motor strength normal and Psychiatric: mood appropriate, affect normal CBC and BMP: 04/20/18 06:48 04/20/18 06:48 Abnormal lab findings: Abnormal Labs 04/16/18 04/16/18 04/16/18 16:55 16:55 16:55 RBC Hgb Hct 35.1 L MCHC 35 H Plt Count 116 L Lymph % (Auto) 7.4 L [place] % (Auto) 8.3 H Lymph # 0.8 L [place] # Seg Neutrophils % 82.8 H Seg Neutrophils # 8.4 H Sodium 133 L Chloride 89.2 L Carbon Dioxide 18 L BUN 104 H Creatinine 19.1 H Glucose 139 H Direct Bilirubin Total Creatine Kinase Troponin T 0.190 H* C-Reactive Protein NT-Pro-B Natriuret Pep > 41541 H Total Protein Albumin Cholesterol 258 H LDL Cholesterol Direct 178 H HDL Cholesterol 60 H 04/16/18 04/16/18 04/17/18 19:28 22:01 16:13 RBC 3.25 L Hgb 10.0 L Hct 29.7 L MCHC Plt Count Lymph % (Auto) [place] % (Auto) Lymph # [place] # Seg Neutrophils % Seg Neutrophils # Sodium Chloride Carbon Dioxide BUN Creatinine Glucose Direct Bilirubin Total Creatine Kinase Troponin T 0.149 H* D 0.171 H* C-Reactive Protein NT-Pro-B Natriuret Pep Total Protein Albumin Cholesterol LDL Cholesterol Direct HDL Cholesterol 04/17/18 04/17/18 04/18/18 16:13 19:48 12:21 RBC 3.14 L Hgb 9.8 L Hct 29.3 L MCHC Plt Count Lymph % (Auto) 11.0 L [place] % (Auto) 11.4 H Lymph # 0.9 L [place] # 0.9 H Seg Neutrophils % 75.0 H Seg Neutrophils # Sodium 135 L Chloride 91.3 L Carbon Dioxide BUN 66 H Creatinine 14.6 H Glucose 120 H Direct Bilirubin Total Creatine Kinase Troponin T C-Reactive Protein 2.70 H NT-Pro-B Natriuret Pep Total Protein Albumin Cholesterol LDL Cholesterol Direct HDL Cholesterol 04/18/18 04/18/18 04/18/18 12:21 12:21 18:41 RBC Hgb Hct MCHC Plt Count Lymph % (Auto) [place] % (Auto) Lymph # [place] # Seg Neutrophils % Seg Neutrophils # Sodium 132 L Chloride 90.5 L Carbon Dioxide 20 L BUN 76 H Creatinine 17.7 H Glucose 107 H Direct Bilirubin Total Creatine Kinase Troponin T 0.236 H* D 0.261 H* C-Reactive Protein NT-Pro-B Natriuret Pep Total Protein Albumin Cholesterol LDL Cholesterol Direct HDL Cholesterol 04/19/18 04/19/18 04/19/18 01:00 06:56 06:56 RBC 3.01 L Hgb 9.5 L Hct 27.9 L MCHC Plt Count Lymph % (Auto) [place] % (Auto) Lymph # [place] # Seg Neutrophils % Seg Neutrophils # Sodium 136 L Chloride 91.8 L Carbon Dioxide 20 L BUN 90 H Creatinine 19.6 H Glucose Direct Bilirubin Total Creatine Kinase Troponin T 0.268 H* C-Reactive Protein NT-Pro-B Natriuret Pep Total Protein Albumin Cholesterol LDL Cholesterol Direct HDL Cholesterol 04/19/18 04/19/18 04/20/18 06:56 06:56 06:48 RBC 3.24 L Hgb 10.2 L Hct 30.2 L MCHC Plt Count Lymph % (Auto) [place] % (Auto) Lymph # [place] # Seg Neutrophils % Seg Neutrophils # Sodium Chloride Carbon Dioxide BUN Creatinine Glucose Direct Bilirubin 0.3 H Total Creatine Kinase 208 H Troponin T C-Reactive Protein NT-Pro-B Natriuret Pep Total Protein 6.0 L Albumin 3.3 L Cholesterol LDL Cholesterol Direct HDL Cholesterol 04/20/18 06:48 RBC Hgb Hct MCHC Plt Count Lymph % (Auto) [place] % (Auto) Lymph # [place] # Seg Neutrophils % Seg Neutrophils # Sodium Chloride 93.8 L Carbon Dioxide BUN 59 H Creatinine 13.7 H Glucose Direct Bilirubin Total Creatine Kinase Troponin T C-Reactive Protein NT-Pro-B Natriuret Pep Total Protein Albumin Cholesterol LDL Cholesterol Direct HDL Cholesterol Chest x-ray: report reviewed (Marked improvement in right lower lobe infiltrate except residual changes.), image reviewed Allied health notes reviewed: nursing
[2018-04-20] MEDS: ROCEPHIN/NS 1 GM/50 ML 1 GM/50 ML BAG IV SCH (22:10)
[2018-04-21] MEDS: APRESOLINE IV PRN (05:59)
[2018-04-21] MEDS: HEPARIN SUB-Q SCH ×3 (06:02→22:42)
[2018-04-21 06:51] LABS: Hematocrit 30.3 % (35.5-45.6); Hemoglobin 10.1 gm/dl (11.8-15.2); Mean Corpuscular HGB Conc 33 % (32-34); Mean Corpuscular Hemoglobin 31 pg (28-32); Mean Corpuscular Volume 93 fl (84-94); Platelet Count 200 K/mm3 (140-440); Red Blood Count 3.24 M/mm3 (3.65-5.03); Red Cell Distribution Width 14.1 % (13.2-15.2)
[2018-04-21 07:01] LABS: Calcium 8.8 mg/dL (8.4-10.2)
[2018-04-21] MEDS ORDERED: VERSED IV NR (08:10)
[2018-04-21] MEDS ORDERED: SUBLIMAZE IV ONE (09:00)
[2018-04-21] MEDS ORDERED: HURRICAINE ONE 20% TOPICAL SPRAY MM NR (09:00)
--- NOTE | 2018-04-21 09:21 | Progress Note ---
Assessment and Plan Hypertensive emergency Acute CVA Normal LVEF by TTE No cardioembolic source by MORELIA Acute renal failure on HD RLL pneumonia Non-specific troponin Recommendations: Continue current management Follow-up with Dr Flor scheduled on May 19, 2018 at 2:10 pm Subjective Date of service: 04/21/18 Principal diagnosis: Hypertensive Emergency; Acute Encephalopathy; GARRETT; Aspiration Pneumonitis Interval history: MORELIA completed today No complications Objective Vital Signs Temp Temp Pulse Pulse Pulse Pulse Resp 04/21/18 09:07 112 H 04/21/18 09:04 114 H 04/21/18 09:01 86 04/21/18 08:58 87 04/21/18 08:38 87 04/21/18 08:35 97.3 F L 80 04/21/18 07:39 98.1 F 89 18 04/21/18 07:35 90 04/21/18 05:59 86 04/21/18 01:30 98.0 F 77 18 04/20/18 21:04 84 20 04/20/18 20:44 97.5 F L 85 18 04/20/18 16:14 82 18 04/20/18 16:00 98.1 F 04/20/18 12:30 82 18 04/20/18 12:00 97.7 F Resp Resp BP BP BP BP Pulse Ox 04/21/18 09:07 17 199/113 04/21/18 09:04 27 H 185/117 04/21/18 09:01 14 161/108 04/21/18 08:58 19 174/120 04/21/18 08:38 16 168/117 04/21/18 08:35 15 168/115 04/21/18 07:39 156/97 97 04/21/18 07:35 152/102 04/21/18 05:59 183/120 04/21/18 01:30 144/101 100 04/20/18 21:04 04/20/18 20:44 150/101 04/20/18 16:14 154/107 99 04/20/18 16:00 04/20/18 12:30 138/95 95 04/20/18 12:00 Pulse Ox Pulse Ox 04/21/18 09:07 99 04/21/18 09:04 100 04/21/18 09:01 100 04/21/18 08:58 100 04/21/18 08:38 100 04/21/18 08:35 100 04/21/18 07:39 04/21/18 07:35 04/21/18 05:59 04/21/18 01:30 04/20/18 21:04 04/20/18 20:44 04/20/18 16:14 04/20/18 16:00 04/20/18 12:30 04/20/18 12:00 - Physical Examination General: No Apparent Distress HEENT: Positive: PERRL Neck: Positive: neck supple Cardiac: Positive: Reg Rate and Rhythm Lungs: Positive: Normal Exam Neuro: Positive: Grossly Intact Abdomen: Positive: Soft Skin: Positive: Clear Extremities: Absent: edema - Labs and Meds CBC 04/21/18 Range/Units 05:53 WBC 6.0 (4.5-11.0) K/mm3 RBC 3.24 L (3.65-5.03) M/mm3 Hgb 10.1 L (11.8-15.2) gm/dl Hct 30.3 L (35.5-45.6) % Plt Count 200 (140-440) K/mm3 Comprehensive Metabolic Panel 04/21/18 Range/Units 05:53 Sodium 136 L (137-145) mmol/L Potassium 4.3 (3.6-5.0) mmol/L Chloride 90.9 L (98-107) mmol/L Carbon Dioxide 22 (22-30) mmol/L BUN 66 H (9-20) mg/dL Creatinine 16.6 H (0.8-1.5) mg/dL Glucose 87 (75-100) mg/dL Calcium 8.8 (8.4-10.2) mg/dL - Allied health notes Allied health notes reviewed: nursing
--- NOTE | 2018-04-21 10:58 | Progress Note ---
Assessment and Plan 1. Blurry vision, slow thinking, headache, confusion. Resolved. Probably from hypertension urgency and encephalopathy. Improved. Control HTN. 2. Acute/subacute right frontal ischemic infarcts. NIHSS 0. Out of windows for TPA. 3. 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 Need further work up, genetic screening, Notch 3 transmembrance receptor or skin biopsy. He agreed to make appointment with [facility] to have these further studies. 4. Pending Carotid Doppler, lipid profile. Echo, EF 55-60%. MORELIA, no cardiogenic emboli. 5. No OT/PT, rehab and speech needed. NIHSS 0. 6. GARRETT. Nephrology. 7. Education for compliance with medicines. 8. Substance abuse. Quit tobacco, alcohol and marijuana. 9. Pneumonia. Antibiotics. 10. Treat risk factors of CVA. Continue baby Aspirin 81 mg daily. 11. Plan discussed with him and his hospitalist. Please call coverage or bottle house quality control technician neurologist for further suggestions. 12. If D/C, F/U with neurology in 4-6 weeks. Subjective Date of service: 04/21/18 Principal diagnosis: Hypertensive Emergency; Acute Encephalopathy; GARRETT; Aspiration Pneumonitis Interval history: Stable, no neurological complains. I saw him in HD room. Objective - Vital Sign Vital Signs - 12hr 04/21/18 04/21/18 04/21/18 01:30 05:59 07:35 Temperature 98.0 F Temperature [ Pre-Procedure] Pulse Rate 77 86 90 Pulse Rate [ Intra-Procedure ] Pulse Rate [ Post-Procedure] Pulse Rate [Pre -Procedure] Respiratory 18 Rate Respiratory Rate [Intra- Procedure] Respiratory Rate [Post- Procedure] Respiratory Rate [Pre- Procedure] Blood Pressure 183/120 Blood Pressure [Intra- Procedure] Blood Pressure 144/101 152/102 [Left] Blood Pressure [Post-Procedure ] Blood Pressure [Pre-Procedure] O2 Sat by Pulse 100 Oximetry O2 Sat by Pulse Oximetry [ Intra-Procedure ] O2 Sat by Pulse Oximetry [Post -Procedure] O2 Sat by Pulse Oximetry [Pre- Procedure] 04/21/18 04/21/18 04/21/18 07:39 08:35 08:38 Temperature 98.1 F Temperature [ 97.3 F L Pre-Procedure] Pulse Rate 89 Pulse Rate [ 87 Intra-Procedure ] Pulse Rate [ Post-Procedure] Pulse Rate [Pre 80 -Procedure] Respiratory 18 Rate Respiratory 16 Rate [Intra- Procedure] Respiratory Rate [Post- Procedure] Respiratory 15 Rate [Pre- Procedure] Blood Pressure 156/97 Blood Pressure 168/117 [Intra- Procedure] Blood Pressure [Left] Blood Pressure [Post-Procedure ] Blood Pressure 168/115 [Pre-Procedure] O2 Sat by Pulse 97 Oximetry O2 Sat by Pulse 100 Oximetry [ Intra-Procedure ] O2 Sat by Pulse Oximetry [Post -Procedure] O2 Sat by Pulse 100 Oximetry [Pre- Procedure] 04/21/18 04/21/18 04/21/18 08:58 09:01 09:04 Temperature Temperature [ Pre-Procedure] Pulse Rate Pulse Rate [ 87 86 114 H Intra-Procedure ] Pulse Rate [ Post-Procedure] Pulse Rate [Pre -Procedure] Respiratory Rate Respiratory 19 14 27 H Rate [Intra- Procedure] Respiratory Rate [Post- Procedure] Respiratory Rate [Pre- Procedure] Blood Pressure Blood Pressure 174/120 161/108 185/117 [Intra- Procedure] Blood Pressure [Left] Blood Pressure [Post-Procedure ] Blood Pressure [Pre-Procedure] O2 Sat by Pulse Oximetry O2 Sat by Pulse 100 100 100 Oximetry [ Intra-Procedure ] O2 Sat by Pulse Oximetry [Post -Procedure] O2 Sat by Pulse Oximetry [Pre- Procedure] 04/21/18 04/21/18 09:07 09:21 Temperature Temperature [ Pre-Procedure] Pulse Rate Pulse Rate [ 112 H Intra-Procedure ] Pulse Rate [ 91 H Post-Procedure] Pulse Rate [Pre -Procedure] Respiratory Rate Respiratory 17 Rate [Intra- Procedure] Respiratory 21 Rate [Post- Procedure] Respiratory Rate [Pre- Procedure] Blood Pressure Blood Pressure 199/113 [Intra- Procedure] Blood Pressure [Left] Blood Pressure 138/94 [Post-Procedure ] Blood Pressure [Pre-Procedure] O2 Sat by Pulse Oximetry O2 Sat by Pulse 99 Oximetry [ Intra-Procedure ] O2 Sat by Pulse 99 Oximetry [Post -Procedure] O2 Sat by Pulse Oximetry [Pre- Procedure] - Laboratory Findings CBC and BMP: 04/21/18 05:53 04/21/18 05:53 Abnormal Lab Findings: Abnormal Labs 04/16/18 04/16/18 04/16/18 16:55 16:55 16:55 RBC Hgb Hct 35.1 L MCHC 35 H Plt Count 116 L Lymph % (Auto) 7.4 L [place] % (Auto) 8.3 H Lymph # 0.8 L [place] # Seg Neutrophils % 82.8 H Seg Neutrophils # 8.4 H Sodium 133 L Chloride 89.2 L Carbon Dioxide 18 L BUN 104 H Creatinine 19.1 H Glucose 139 H Direct Bilirubin Total Creatine Kinase Troponin T 0.190 H* C-Reactive Protein NT-Pro-B Natriuret Pep > 17296 H Total Protein Albumin Cholesterol 258 H LDL Cholesterol Direct 178 H HDL Cholesterol 60 H 04/16/18 04/16/18 04/17/18 19:28 22:01 16:13 RBC 3.25 L Hgb 10.0 L Hct 29.7 L MCHC Plt Count Lymph % (Auto) [place] % (Auto) Lymph # [place] # Seg Neutrophils % Seg Neutrophils # Sodium Chloride Carbon Dioxide BUN Creatinine Glucose Direct Bilirubin Total Creatine Kinase Troponin T 0.149 H* D 0.171 H* C-Reactive Protein NT-Pro-B Natriuret Pep Total Protein Albumin Cholesterol LDL Cholesterol Direct HDL Cholesterol 04/17/18 04/17/18 04/18/18 16:13 19:48 12:21 RBC 3.14 L Hgb 9.8 L Hct 29.3 L MCHC Plt Count Lymph % (Auto) 11.0 L [place] % (Auto) 11.4 H Lymph # 0.9 L [place] # 0.9 H Seg Neutrophils % 75.0 H Seg Neutrophils # Sodium 135 L Chloride 91.3 L Carbon Dioxide BUN 66 H Creatinine 14.6 H Glucose 120 H Direct Bilirubin Total Creatine Kinase Troponin T C-Reactive Protein 2.70 H NT-Pro-B Natriuret Pep Total Protein Albumin Cholesterol LDL Cholesterol Direct HDL Cholesterol 04/18/18 04/18/18 04/18/18 12:21 12:21 18:41 RBC Hgb Hct MCHC Plt Count Lymph % (Auto) [place] % (Auto) Lymph # [place] # Seg Neutrophils % Seg Neutrophils # Sodium 132 L Chloride 90.5 L Carbon Dioxide 20 L BUN 76 H Creatinine 17.7 H Glucose 107 H Direct Bilirubin Total Creatine Kinase Troponin T 0.236 H* D 0.261 H* C-Reactive Protein NT-Pro-B Natriuret Pep Total Protein Albumin Cholesterol LDL Cholesterol Direct HDL Cholesterol 04/19/18 04/19/18 04/19/18 01:00 06:56 06:56 RBC 3.01 L Hgb 9.5 L Hct 27.9 L MCHC Plt Count Lymph % (Auto) [place] % (Auto) Lymph # [place] # Seg Neutrophils % Seg Neutrophils # Sodium 136 L Chloride 91.8 L Carbon Dioxide 20 L BUN 90 H Creatinine 19.6 H Glucose Direct Bilirubin Total Creatine Kinase Troponin T 0.268 H* C-Reactive Protein NT-Pro-B Natriuret Pep Total Protein Albumin Cholesterol LDL Cholesterol Direct HDL Cholesterol 04/19/18 04/19/18 04/20/18 06:56 06:56 06:48 RBC 3.24 L Hgb 10.2 L Hct 30.2 L MCHC Plt Count Lymph % (Auto) [place] % (Auto) Lymph # [place] # Seg Neutrophils % Seg Neutrophils # Sodium Chloride Carbon Dioxide BUN Creatinine Glucose Direct Bilirubin 0.3 H Total Creatine Kinase 208 H Troponin T C-Reactive Protein NT-Pro-B Natriuret Pep Total Protein 6.0 L Albumin 3.3 L Cholesterol LDL Cholesterol Direct HDL Cholesterol 04/20/18 04/21/18 04/21/18 06:48 05:53 05:53 RBC 3.24 L Hgb 10.1 L Hct 30.3 L MCHC Plt Count Lymph % (Auto) [place] % (Auto) Lymph # [place] # Seg Neutrophils % Seg Neutrophils # Sodium 136 L Chloride 93.8 L 90.9 L Carbon Dioxide BUN 59 H 66 H Creatinine 13.7 H 16.6 H Glucose Direct Bilirubin Total Creatine Kinase Troponin T C-Reactive Protein NT-Pro-B Natriuret Pep Total Protein Albumin Cholesterol LDL Cholesterol Direct HDL Cholesterol
[2018-04-21] MEDS ORDERED: NACL 0.9 (PRIMING MACHINE ONLY DIALYSIS) MC ONE (11:50)
--- NOTE | 2018-04-21 12:08 | Vascular Lab Report ---
LEFT UPPER EXTREMITY VENOUS DUPLEX: REASON FOR EXAM: Pain and swelling of the left upper extremity COMMENTS ON THE LEFT: Acute superficial venous thrombosis is noted in the basilic vein near the elbow. The deep veins are not thrombosed. The remaining veins visualized are freely compressible without evidence of internal echogenicity. Spontaneous and phasic flow is present proximally. COMMENTS ON THE RIGHT: A limited study of the jugular and subclavian veins shows no evidence of thrombus. IMPRESSION: Acute superficial venous thrombosis of the basilic vein at the level of the left elbow. No deep vein thrombosis is noted in the left upper extremity.
--- NOTE | 2018-04-21 13:36 | Progress Note ---
Assessment and Plan atient alert,awake. Resting on room air.O2 saturation 100%. No complaint of chest pain,shortness of breath or cough.Patient afebrile, No leukocytosis. - Patient Problems (1) RLL pneumonia Current Visit: Yes Status: Acute Plan to address problem: Improving. Patient is on ceftrioxone. (2) Acute kidney injury superimposed on CKD Current Visit: Yes Status: Acute Plan to address problem: Management as per nephrology. (3) Anemia in CKD (chronic kidney disease) Current Visit: Yes Status: Acute Plan to address problem: Mangement as per primary care and nephrology. (4) Hypertensive emergency Current Visit: Yes Status: Acute Plan to address problem: Blood pressure improving. (5) Nicotine dependence Current Visit: Yes Status: Acute Qualifiers: Substance use status: in withdrawal Plan to address problem: Counselled to stop smoking. Recommend PFTs as out patient. (6) Superficial venous thrombosis of left arm Current Visit: Yes Status: Acute Plan to address problem: Patient is on S/C heparin. Management as per vascular surgery. Subjective Date of service: 04/21/18 Principal diagnosis: Hypertensive Emergency; Acute Encephalopathy; GARRETT; Aspiration Pneumonitis Interval history: Patient alert,awake. Resting on room air.O2 saturation 100%. No complaint of chest pain,shortness of breath or cough.Patient afebrile, No leukocytosis. Objective Vital Signs - 12hr 04/21/18 04/21/18 04/21/18 05:59 07:35 07:39 Temperature 98.1 F Temperature [ Pre-Procedure] Pulse Rate 86 90 89 Pulse Rate [ Intra-Procedure ] Pulse Rate [ Post-Procedure] Pulse Rate [Pre -Procedure] Respiratory 18 Rate Respiratory Rate [Intra- Procedure] Respiratory Rate [Post- Procedure] Respiratory Rate [Pre- Procedure] Blood Pressure 183/120 156/97 Blood Pressure [Intra- Procedure] Blood Pressure 152/102 [Left] Blood Pressure [Post-Procedure ] Blood Pressure [Pre-Procedure] O2 Sat by Pulse 97 Oximetry O2 Sat by Pulse Oximetry [ Intra-Procedure ] O2 Sat by Pulse Oximetry [Post -Procedure] O2 Sat by Pulse Oximetry [Pre- Procedure] 04/21/18 04/21/18 04/21/18 08:35 08:38 08:58 Temperature Temperature [ 97.3 F L Pre-Procedure] Pulse Rate Pulse Rate [ 87 87 Intra-Procedure ] Pulse Rate [ Post-Procedure] Pulse Rate [Pre 80 -Procedure] Respiratory Rate Respiratory 16 19 Rate [Intra- Procedure] Respiratory Rate [Post- Procedure] Respiratory 15 Rate [Pre- Procedure] Blood Pressure Blood Pressure 168/117 174/120 [Intra- Procedure] Blood Pressure [Left] Blood Pressure [Post-Procedure ] Blood Pressure 168/115 [Pre-Procedure] O2 Sat by Pulse Oximetry O2 Sat by Pulse 100 100 Oximetry [ Intra-Procedure ] O2 Sat by Pulse Oximetry [Post -Procedure] O2 Sat by Pulse 100 Oximetry [Pre- Procedure] 04/21/18 04/21/18 04/21/18 09:01 09:04 09:07 Temperature Temperature [ Pre-Procedure] Pulse Rate Pulse Rate [ 86 114 H 112 H Intra-Procedure ] Pulse Rate [ Post-Procedure] Pulse Rate [Pre -Procedure] Respiratory Rate Respiratory 14 27 H 17 Rate [Intra- Procedure] Respiratory Rate [Post- Procedure] Respiratory Rate [Pre- Procedure] Blood Pressure Blood Pressure 161/108 185/117 199/113 [Intra- Procedure] Blood Pressure [Left] Blood Pressure [Post-Procedure ] Blood Pressure [Pre-Procedure] O2 Sat by Pulse Oximetry O2 Sat by Pulse 100 100 99 Oximetry [ Intra-Procedure ] O2 Sat by Pulse Oximetry [Post -Procedure] O2 Sat by Pulse Oximetry [Pre- Procedure] 04/21/18 04/21/18 04/21/18 09:21 09:40 09:50 Temperature 98.2 F Temperature [ Pre-Procedure] Pulse Rate 84 83 Pulse Rate [ Intra-Procedure ] Pulse Rate [ 91 H Post-Procedure] Pulse Rate [Pre -Procedure] Respiratory 18 Rate Respiratory Rate [Intra- Procedure] Respiratory 21 Rate [Post- Procedure] Respiratory Rate [Pre- Procedure] Blood Pressure 159/99 153/107 Blood Pressure [Intra- Procedure] Blood Pressure [Left] Blood Pressure 138/94 [Post-Procedure ] Blood Pressure [Pre-Procedure] O2 Sat by Pulse Oximetry O2 Sat by Pulse Oximetry [ Intra-Procedure ] O2 Sat by Pulse 99 Oximetry [Post -Procedure] O2 Sat by Pulse Oximetry [Pre- Procedure] 04/21/18 04/21/18 04/21/18 10:00 10:15 10:30 Temperature Temperature [ Pre-Procedure] Pulse Rate 85 80 80 Pulse Rate [ Intra-Procedure ] Pulse Rate [ Post-Procedure] Pulse Rate [Pre -Procedure] Respiratory Rate Respiratory Rate [Intra- Procedure] Respiratory Rate [Post- Procedure] Respiratory Rate [Pre- Procedure] Blood Pressure 157/112 162/105 160/98 Blood Pressure [Intra- Procedure] Blood Pressure [Left] Blood Pressure [Post-Procedure ] Blood Pressure [Pre-Procedure] O2 Sat by Pulse Oximetry O2 Sat by Pulse Oximetry [ Intra-Procedure ] O2 Sat by Pulse Oximetry [Post -Procedure] O2 Sat by Pulse Oximetry [Pre- Procedure] 04/21/18 04/21/18 04/21/18 10:45 11:00 11:15 Temperature Temperature [ Pre-Procedure] Pulse Rate 84 75 78 Pulse Rate [ Intra-Procedure ] Pulse Rate [ Post-Procedure] Pulse Rate [Pre -Procedure] Respiratory Rate Respiratory Rate [Intra- Procedure] Respiratory Rate [Post- Procedure] Respiratory Rate [Pre- Procedure] Blood Pressure 164/101 160/101 170/104 Blood Pressure [Intra- Procedure] Blood Pressure [Left] Blood Pressure [Post-Procedure ] Blood Pressure [Pre-Procedure] O2 Sat by Pulse Oximetry O2 Sat by Pulse Oximetry [ Intra-Procedure ] O2 Sat by Pulse Oximetry [Post -Procedure] O2 Sat by Pulse Oximetry [Pre- Procedure] 04/21/18 04/21/18 04/21/18 11:30 11:45 12:00 Temperature Temperature [ Pre-Procedure] Pulse Rate 83 53 L 71 Pulse Rate [ Intra-Procedure ] Pulse Rate [ Post-Procedure] Pulse Rate [Pre -Procedure] Respiratory Rate Respiratory Rate [Intra- Procedure] Respiratory Rate [Post- Procedure] Respiratory Rate [Pre- Procedure] Blood Pressure 160/120 149/90 155/95 Blood Pressure [Intra- Procedure] Blood Pressure [Left] Blood Pressure [Post-Procedure ] Blood Pressure [Pre-Procedure] O2 Sat by Pulse Oximetry O2 Sat by Pulse Oximetry [ Intra-Procedure ] O2 Sat by Pulse Oximetry [Post -Procedure] O2 Sat by Pulse Oximetry [Pre- Procedure] 04/21/18 04/21/18 04/21/18 12:15 12:30 12:45 Temperature Temperature [ Pre-Procedure] Pulse Rate 72 92 H 80 Pulse Rate [ Intra-Procedure ] Pulse Rate [ Post-Procedure] Pulse Rate [Pre -Procedure] Respiratory Rate Respiratory Rate [Intra- Procedure] Respiratory Rate [Post- Procedure] Respiratory Rate [Pre- Procedure] Blood Pressure 152/93 146/102 174/114 Blood Pressure [Intra- Procedure] Blood Pressure [Left] Blood Pressure [Post-Procedure ] Blood Pressure [Pre-Procedure] O2 Sat by Pulse Oximetry O2 Sat by Pulse Oximetry [ Intra-Procedure ] O2 Sat by Pulse Oximetry [Post -Procedure] O2 Sat by Pulse Oximetry [Pre- Procedure] Constitutional: no acute distress, alert Eyes: non-icteric ENT: oropharynx moist, other (mallampati 3) Neck: supple, no lymphadenopathy, no JVD, other (Right Subclavian tunnelled vas- cath) Effort: mildly labored Ascultation: Right: rhonchi (Few rhonchi right base.), Bilateral: diminished breath sounds (bases) Percussion: Bilateral: not dull (bases) Cardiovascular: regular rate and rhythm Gastrointestinal: soft, non-tender, tender Integumentary: normal Extremities: no cyanosis, no edema, pulses normal, no ischemia or petechiae Neurologic: normal mental status, non-focal exam, pupils equal and round, motor strength normal and Psychiatric: mood appropriate, affect normal CBC and BMP: 04/21/18 05:53 04/21/18 05:53 Abnormal lab findings: Abnormal Labs 04/16/18 04/16/18 04/16/18 16:55 16:55 16:55 RBC Hgb Hct 35.1 L MCHC 35 H Plt Count 116 L Lymph % (Auto) 7.4 L [place] % (Auto) 8.3 H Lymph # 0.8 L [place] # Seg Neutrophils % 82.8 H Seg Neutrophils # 8.4 H Sodium 133 L Chloride 89.2 L Carbon Dioxide 18 L BUN 104 H Creatinine 19.1 H Glucose 139 H Direct Bilirubin Total Creatine Kinase Troponin T 0.190 H* C-Reactive Protein NT-Pro-B Natriuret Pep > 76012 H Total Protein Albumin Cholesterol 258 H LDL Cholesterol Direct 178 H HDL Cholesterol 60 H 04/16/18 04/16/18 04/17/18 19:28 22:01 16:13 RBC 3.25 L Hgb 10.0 L Hct 29.7 L MCHC Plt Count Lymph % (Auto) [place] % (Auto) Lymph # [place] # Seg Neutrophils % Seg Neutrophils # Sodium Chloride Carbon Dioxide BUN Creatinine Glucose Direct Bilirubin Total Creatine Kinase Troponin T 0.149 H* D 0.171 H* C-Reactive Protein NT-Pro-B Natriuret Pep Total Protein Albumin Cholesterol LDL Cholesterol Direct HDL Cholesterol 04/17/18 04/17/18 04/18/18 16:13 19:48 12:21 RBC 3.14 L Hgb 9.8 L Hct 29.3 L MCHC Plt Count Lymph % (Auto) 11.0 L [place] % (Auto) 11.4 H Lymph # 0.9 L [place] # 0.9 H Seg Neutrophils % 75.0 H Seg Neutrophils # Sodium 135 L Chloride 91.3 L Carbon Dioxide BUN 66 H Creatinine 14.6 H Glucose 120 H Direct Bilirubin Total Creatine Kinase Troponin T C-Reactive Protein 2.70 H NT-Pro-B Natriuret Pep Total Protein Albumin Cholesterol LDL Cholesterol Direct HDL Cholesterol 04/18/18 04/18/18 04/18/18 12:21 12:21 18:41 RBC Hgb Hct MCHC Plt Count Lymph % (Auto) [place] % (Auto) Lymph # [place] # Seg Neutrophils % Seg Neutrophils # Sodium 132 L Chloride 90.5 L Carbon Dioxide 20 L BUN 76 H Creatinine 17.7 H Glucose 107 H Direct Bilirubin Total Creatine Kinase Troponin T 0.236 H* D 0.261 H* C-Reactive Protein NT-Pro-B Natriuret Pep Total Protein Albumin Cholesterol LDL Cholesterol Direct HDL Cholesterol 04/19/18 04/19/18 04/19/18 01:00 06:56 06:56 RBC 3.01 L Hgb 9.5 L Hct 27.9 L MCHC Plt Count Lymph % (Auto) [place] % (Auto) Lymph # [place] # Seg Neutrophils % Seg Neutrophils # Sodium 136 L Chloride 91.8 L Carbon Dioxide 20 L BUN 90 H Creatinine 19.6 H Glucose Direct Bilirubin Total Creatine Kinase Troponin T 0.268 H* C-Reactive Protein NT-Pro-B Natriuret Pep Total Protein Albumin Cholesterol LDL Cholesterol Direct HDL Cholesterol 04/19/18 04/19/18 04/20/18 06:56 06:56 06:48 RBC 3.24 L Hgb 10.2 L Hct 30.2 L MCHC Plt Count Lymph % (Auto) [place] % (Auto) Lymph # [place] # Seg Neutrophils % Seg Neutrophils # Sodium Chloride Carbon Dioxide BUN Creatinine Glucose Direct Bilirubin 0.3 H Total Creatine Kinase 208 H Troponin T C-Reactive Protein NT-Pro-B Natriuret Pep Total Protein 6.0 L Albumin 3.3 L Cholesterol LDL Cholesterol Direct HDL Cholesterol 04/20/18 04/21/18 04/21/18 06:48 05:53 05:53 RBC 3.24 L Hgb 10.1 L Hct 30.3 L MCHC Plt Count Lymph % (Auto) [place] % (Auto) Lymph # [place] # Seg Neutrophils % Seg Neutrophils # Sodium 136 L Chloride 93.8 L 90.9 L Carbon Dioxide BUN 59 H 66 H Creatinine 13.7 H 16.6 H Glucose Direct Bilirubin Total Creatine Kinase Troponin T C-Reactive Protein NT-Pro-B Natriuret Pep Total Protein Albumin Cholesterol LDL Cholesterol Direct HDL Cholesterol Additional Studies: Doppler studies of left upper extremity reported superficial thrombosis left elbow basilic vein. Allied health notes reviewed: nursing
--- NOTE | 2018-04-21 14:36 | Progress Note ---
Assessment and Plan impression * End-stage renal disease * Hypertension * Anemia * pneumonia * CVA Recommendations * Patient tolerating dialysis well * Continue dialysis on MWF schedule for now * no objection to discharge once outpatient dialysis arrangements have been made * adjust antihypertensive meds * Procrit with dialysis * Avoid nephrotoxins Subjective Date of service: 04/21/18 Principal diagnosis: Hypertensive Emergency; Acute Encephalopathy; GARRETT; Aspiration Pneumonitis Interval history: patient is currently undergoing dialysis. Tolerating well. Denies any shortness of breath Objective - Vital Signs Vital signs: Vital Signs - 12hr 04/21/18 04/21/18 04/21/18 05:59 07:35 07:39 Temperature 98.1 F Temperature [ Pre-Procedure] Pulse Rate 86 90 89 Pulse Rate [ Intra-Procedure ] Pulse Rate [ Post-Procedure] Pulse Rate [Pre -Procedure] Respiratory 18 Rate Respiratory Rate [Intra- Procedure] Respiratory Rate [Post- Procedure] Respiratory Rate [Pre- Procedure] Blood Pressure 183/120 156/97 Blood Pressure [Intra- Procedure] Blood Pressure 152/102 [Left] Blood Pressure [Post-Procedure ] Blood Pressure [Pre-Procedure] O2 Sat by Pulse 97 Oximetry O2 Sat by Pulse Oximetry [ Intra-Procedure ] O2 Sat by Pulse Oximetry [Post -Procedure] O2 Sat by Pulse Oximetry [Pre- Procedure] 04/21/18 04/21/18 04/21/18 08:35 08:38 08:58 Temperature Temperature [ 97.3 F L Pre-Procedure] Pulse Rate Pulse Rate [ 87 87 Intra-Procedure ] Pulse Rate [ Post-Procedure] Pulse Rate [Pre 80 -Procedure] Respiratory Rate Respiratory 16 19 Rate [Intra- Procedure] Respiratory Rate [Post- Procedure] Respiratory 15 Rate [Pre- Procedure] Blood Pressure Blood Pressure 168/117 174/120 [Intra- Procedure] Blood Pressure [Left] Blood Pressure [Post-Procedure ] Blood Pressure 168/115 [Pre-Procedure] O2 Sat by Pulse Oximetry O2 Sat by Pulse 100 100 Oximetry [ Intra-Procedure ] O2 Sat by Pulse Oximetry [Post -Procedure] O2 Sat by Pulse 100 Oximetry [Pre- Procedure] 04/21/18 04/21/18 04/21/18 09:01 09:04 09:07 Temperature Temperature [ Pre-Procedure] Pulse Rate Pulse Rate [ 86 114 H 112 H Intra-Procedure ] Pulse Rate [ Post-Procedure] Pulse Rate [Pre -Procedure] Respiratory Rate Respiratory 14 27 H 17 Rate [Intra- Procedure] Respiratory Rate [Post- Procedure] Respiratory Rate [Pre- Procedure] Blood Pressure Blood Pressure 161/108 185/117 199/113 [Intra- Procedure] Blood Pressure [Left] Blood Pressure [Post-Procedure ] Blood Pressure [Pre-Procedure] O2 Sat by Pulse Oximetry O2 Sat by Pulse 100 100 99 Oximetry [ Intra-Procedure ] O2 Sat by Pulse Oximetry [Post -Procedure] O2 Sat by Pulse Oximetry [Pre- Procedure] 04/21/18 04/21/18 04/21/18 09:21 09:40 09:50 Temperature 98.2 F Temperature [ Pre-Procedure] Pulse Rate 84 83 Pulse Rate [ Intra-Procedure ] Pulse Rate [ 91 H Post-Procedure] Pulse Rate [Pre -Procedure] Respiratory 18 Rate Respiratory Rate [Intra- Procedure] Respiratory 21 Rate [Post- Procedure] Respiratory Rate [Pre- Procedure] Blood Pressure 159/99 153/107 Blood Pressure [Intra- Procedure] Blood Pressure [Left] Blood Pressure 138/94 [Post-Procedure ] Blood Pressure [Pre-Procedure] O2 Sat by Pulse Oximetry O2 Sat by Pulse Oximetry [ Intra-Procedure ] O2 Sat by Pulse 99 Oximetry [Post -Procedure] O2 Sat by Pulse Oximetry [Pre- Procedure] 04/21/18 04/21/18 04/21/18 10:00 10:15 10:30 Temperature Temperature [ Pre-Procedure] Pulse Rate 85 80 80 Pulse Rate [ Intra-Procedure ] Pulse Rate [ Post-Procedure] Pulse Rate [Pre -Procedure] Respiratory Rate Respiratory Rate [Intra- Procedure] Respiratory Rate [Post- Procedure] Respiratory Rate [Pre- Procedure] Blood Pressure 157/112 162/105 160/98 Blood Pressure [Intra- Procedure] Blood Pressure [Left] Blood Pressure [Post-Procedure ] Blood Pressure [Pre-Procedure] O2 Sat by Pulse Oximetry O2 Sat by Pulse Oximetry [ Intra-Procedure ] O2 Sat by Pulse Oximetry [Post -Procedure] O2 Sat by Pulse Oximetry [Pre- Procedure] 04/21/18 04/21/18 04/21/18 10:45 11:00 11:15 Temperature Temperature [ Pre-Procedure] Pulse Rate 84 75 78 Pulse Rate [ Intra-Procedure ] Pulse Rate [ Post-Procedure] Pulse Rate [Pre -Procedure] Respiratory Rate Respiratory Rate [Intra- Procedure] Respiratory Rate [Post- Procedure] Respiratory Rate [Pre- Procedure] Blood Pressure 164/101 160/101 170/104 Blood Pressure [Intra- Procedure] Blood Pressure [Left] Blood Pressure [Post-Procedure ] Blood Pressure [Pre-Procedure] O2 Sat by Pulse Oximetry O2 Sat by Pulse Oximetry [ Intra-Procedure ] O2 Sat by Pulse Oximetry [Post -Procedure] O2 Sat by Pulse Oximetry [Pre- Procedure] 04/21/18 04/21/18 04/21/18 11:30 11:45 12:00 Temperature Temperature [ Pre-Procedure] Pulse Rate 83 53 L 71 Pulse Rate [ Intra-Procedure ] Pulse Rate [ Post-Procedure] Pulse Rate [Pre -Procedure] Respiratory Rate Respiratory Rate [Intra- Procedure] Respiratory Rate [Post- Procedure] Respiratory Rate [Pre- Procedure] Blood Pressure 160/120 149/90 155/95 Blood Pressure [Intra- Procedure] Blood Pressure [Left] Blood Pressure [Post-Procedure ] Blood Pressure [Pre-Procedure] O2 Sat by Pulse Oximetry O2 Sat by Pulse Oximetry [ Intra-Procedure ] O2 Sat by Pulse Oximetry [Post -Procedure] O2 Sat by Pulse Oximetry [Pre- Procedure] 04/21/18 04/21/18 04/21/18 12:15 12:30 12:45 Temperature Temperature [ Pre-Procedure] Pulse Rate 72 92 H 80 Pulse Rate [ Intra-Procedure ] Pulse Rate [ Post-Procedure] Pulse Rate [Pre -Procedure] Respiratory Rate Respiratory Rate [Intra- Procedure] Respiratory Rate [Post- Procedure] Respiratory Rate [Pre- Procedure] Blood Pressure 152/93 146/102 174/114 Blood Pressure [Intra- Procedure] Blood Pressure [Left] Blood Pressure [Post-Procedure ] Blood Pressure [Pre-Procedure] O2 Sat by Pulse Oximetry O2 Sat by Pulse Oximetry [ Intra-Procedure ] O2 Sat by Pulse Oximetry [Post -Procedure] O2 Sat by Pulse Oximetry [Pre- Procedure] 04/21/18 04/21/18 04/21/18 13:00 13:15 13:30 Temperature Temperature [ Pre-Procedure] Pulse Rate 84 77 78 Pulse Rate [ Intra-Procedure ] Pulse Rate [ Post-Procedure] Pulse Rate [Pre -Procedure] Respiratory Rate Respiratory Rate [Intra- Procedure] Respiratory Rate [Post- Procedure] Respiratory Rate [Pre- Procedure] Blood Pressure 181/134 177/120 181/123 Blood Pressure [Intra- Procedure] Blood Pressure [Left] Blood Pressure [Post-Procedure ] Blood Pressure [Pre-Procedure] O2 Sat by Pulse Oximetry O2 Sat by Pulse Oximetry [ Intra-Procedure ] O2 Sat by Pulse Oximetry [Post -Procedure] O2 Sat by Pulse Oximetry [Pre- Procedure] 04/21/18 04/21/18 13:40 13:45 Temperature 98.0 F Temperature [ Pre-Procedure] Pulse Rate 80 97 H Pulse Rate [ Intra-Procedure ] Pulse Rate [ Post-Procedure] Pulse Rate [Pre -Procedure] Respiratory 18 Rate Respiratory Rate [Intra- Procedure] Respiratory Rate [Post- Procedure] Respiratory Rate [Pre- Procedure] Blood Pressure 177/116 178/122 Blood Pressure [Intra- Procedure] Blood Pressure [Left] Blood Pressure [Post-Procedure ] Blood Pressure [Pre-Procedure] O2 Sat by Pulse Oximetry O2 Sat by Pulse Oximetry [ Intra-Procedure ] O2 Sat by Pulse Oximetry [Post -Procedure] O2 Sat by Pulse Oximetry [Pre- Procedure] - General Appearance General appearance: well-developed, well-nourished, appears stated age EENT: PERRL, mucous membranes moist Neck: no JVD, no thyromegaly, no carotid bruit, supple, other (right IJ PermCath in place) Respiratory: Present: Clear to Ascultation Cardiology: regular, normal heart rate, S1S2, no murmurs Gastrointestinal: normal, normoactive bowel sounds Integumentary: no rash, other (no edema) - Lab 04/21/18 05:53 04/21/18 05:53 Most recent lab results Calcium 8.8 mg/dL (8.4-10.2) 04/21/18 05:53
[2018-04-21] MEDS: NORMODYNE PO SCH ×2 (16:18→22:45)
[2018-04-21] MEDS: PEPCID PO SCH (16:18)
[2018-04-21] MEDS: DIOVAN PO SCH ×2 (16:18→22:46)
[2018-04-21] MEDS: BABY ASPIRIN PO SCH (16:18)
[2018-04-21] MEDS: PROCARDIA XL PO SCH (16:19)
--- NOTE | 2018-04-21 17:54 | Progress Note ---
Assessment and Plan Assessment and plan: Hypertensive emergency Now on Labetalol, Procardia, valsartan. He is now off Cardene drip. BP fluctuating Acute kidney injury on CKD, now ESRD Nephrology following, Permacath placement by Vascular Continue hemodialysis as per nephrology Acute ischemic stroke right frontal Started on Aspirin. Neurology consulted. I discussed case with him, and he recommended MORELIA. MORELIA done today was unremarkable, no source of emboli RLL pneumonia cont IV antibiotics, supplemental oxygen, nebulizer therapy, Elevated troponin Consulted Cardiology Continue Aspirin daily Abnormal CT head, obtain MRI Metabolic Acidosis Now resolved Nicotine dependence Smoking cessation counseling. DVT prophylaxis with Heparin subcut. Full code status Medical non-compliance History Interval history: Patient with hypertensive emergency, No chest pain No extremity weakness Hospitalist Physical - Physical exam Narrative exam: Gen : Not in acute distress,obese HEENT:Normocephalic, atraumatic Neck: supple, No JVD Lungs: Clear to auscultation, bilaterally, no rhonchi Heart :S1 and S2 reg, no murmurs, rubs or gallop Abd:soft, non tender, non distended, normal bowel sounds Ext: No edema, no clubbing, no cyanosis, Neuro: Awake,alert,oriented x 3, no focal signs Psych:normal mood - Constitutional Vitals: Temp Pulse Resp BP Pulse Ox 98.1 F 82 18 172/121 100 04/21/18 15:25 04/21/18 15:25 04/21/18 15:25 04/21/18 15:25 04/21/18 15:25 General appearance: Present: no acute distress, obese Results - Labs CBC & Chem 7: 04/21/18 05:53 04/21/18 05:53 Labs: Laboratory Last Values WBC 6.0 K/mm3 (4.5-11.0) 04/21/18 05:53 RBC 3.24 M/mm3 (3.65-5.03) L 04/21/18 05:53 Hgb 10.1 gm/dl (11.8-15.2) L 04/21/18 05:53 Hct 30.3 % (35.5-45.6) L 04/21/18 05:53 MCV 93 fl (84-94) 04/21/18 05:53 MCH 31 pg (28-32) 04/21/18 05:53 MCHC 33 % (32-34) 04/21/18 05:53 RDW 14.1 % (13.2-15.2) 04/21/18 05:53 Plt Count 200 K/mm3 (140-440) 04/21/18 05:53 Lymph % (Auto) 11.0 % (13.4-35.0) L 04/18/18 12:21 [place] % (Auto) 11.4 % (0.0-7.3) H 04/18/18 12:21 Eos % (Auto) 1.2 % (0.0-4.3) 04/18/18 12:21 Baso % (Auto) 1.4 % (0.0-1.8) 04/18/18 12:21 Lymph # 0.9 K/mm3 (1.2-5.4) L 04/18/18 12:21 [place] # 0.9 K/mm3 (0.0-0.8) H 04/18/18 12:21 Eos # 0.1 K/mm3 (0.0-0.4) 04/18/18 12:21 Baso # 0.1 K/mm3 (0.0-0.1) 04/18/18 12:21 Seg Neutrophils % 75.0 % (40.0-70.0) H 04/18/18 12:21 Seg Neutrophils # 6.0 K/mm3 (1.8-7.7) 04/18/18 12:21 Sodium 136 mmol/L (137-145) L 04/21/18 05:53 Potassium 4.3 mmol/L (3.6-5.0) 04/21/18 05:53 Chloride 90.9 mmol/L (98-107) L 04/21/18 05:53 Carbon Dioxide 22 mmol/L (22-30) 04/21/18 05:53 Anion Gap 27 mmol/L 04/21/18 05:53 BUN 66 mg/dL (9-20) H 04/21/18 05:53 Creatinine 16.6 mg/dL (0.8-1.5) H 04/21/18 05:53 Estimated GFR 4 ml/min 04/21/18 05:53 BUN/Creatinine Ratio 4 % 04/21/18 05:53 Glucose 87 mg/dL (75-100) 04/21/18 05:53 Lactic Acid 1.10 mmol/L (0.7-2.0) 04/17/18 19:48 Calcium 8.8 mg/dL (8.4-10.2) 04/21/18 05:53 Total Bilirubin 0.60 mg/dL (0.1-1.2) 04/19/18 06:56 Direct Bilirubin 0.3 mg/dL (0-0.2) H 04/19/18 06:56 Indirect Bilirubin 0.3 mg/dL 04/19/18 06:56 AST 15 units/L (5-40) 04/19/18 06:56 ALT 9 units/L (7-56) 04/19/18 06:56 Alkaline Phosphatase 39 units/L (35-129) 04/19/18 06:56 Total Creatine Kinase 208 units/L (55-170) H 04/19/18 06:56 Troponin T 0.268 ng/mL (0.00-0.029) H* 04/19/18 01:00 C-Reactive Protein 2.70 mg/dL (0.00-1.30) H 04/17/18 19:48 NT-Pro-B Natriuret Pep > 79302 pg/mL (0-450) H 04/16/18 16:55 Total Protein 6.0 g/dL (6.3-8.2) L 04/19/18 06:56 Albumin 3.3 g/dL (3.9-5) L 04/19/18 06:56 Albumin/Globulin Ratio 1.2 % 04/19/18 06:56 Triglycerides 139 mg/dL (2-149) 04/16/18 16:55 Cholesterol 258 mg/dL (50-199) H 04/16/18 16:55 LDL Cholesterol Direct 178 mg/dL (50-130) H 04/16/18 16:55 HDL Cholesterol 60 mg/dL (40-59) H 04/16/18 16:55 Cholesterol/HDL Ratio 4.30 % 04/16/18 16:55 TSH 2.110 mlU/mL (0.270-4.200) 04/17/18 19:48 Hepatitis A IgM Ab Non-reactive (NonReactive) 04/17/18 12:00 Hep Bs Antigen Non-reactive (Negative) 04/17/18 12:00 Hep B Core IgM Ab Non-reactive (NonReactive) 04/17/18 12:00 Hepatitis C Antibody Non-reactive (NonReactive) 04/17/18 12:00
[2018-04-21] MEDS: ROCEPHIN/NS 1 GM/50 ML 1 GM/50 ML BAG IV SCH (22:05)
[2018-04-21] MEDS: SODIUM CHLORIDE FLUSH SYRINGE 10 ML IV SCH (22:39)
[2018-04-21] MEDS: ALUM-MAG HYDROX-SIMETH 200-200-20MG/5ML PO PRN (23:49)
[2018-04-22] MEDS: HEPARIN SUB-Q SCH ×2 (06:10→14:02)
--- NOTE | 2018-04-22 08:44 | Progress Note ---
Assessment and Plan Hypertensive emergency Acute CVA Normal LVEF by TTE No cardioembolic source by MORELIA Acute renal failure on HD RLL pneumonia Non-specific troponin Recommendations: Continue current management Add clonidine Follow-up with Dr Flor scheduled on May 19, 2018 at 2:10 pm Subjective Date of service: 04/22/18 Principal diagnosis: Hypertensive Emergency; Acute Encephalopathy; GARRETT; Aspiration Pneumonitis Interval history: No acute events. Resting comfortably. No chest pain or SOB. Objective Vital Signs Temp Pulse Pulse Pulse Pulse Resp Resp 04/22/18 08:00 98.0 F 87 18 04/22/18 07:51 04/22/18 04:23 98.3 F 18 04/21/18 23:22 98.0 F 83 18 04/21/18 22:46 77 04/21/18 22:45 77 04/21/18 22:00 83 04/21/18 21:28 83 04/21/18 19:11 98.2 F 83 18 04/21/18 18:10 04/21/18 15:25 98.1 F 82 18 04/21/18 14:00 82 04/21/18 13:45 98.0 F 97 H 18 04/21/18 13:40 80 04/21/18 13:30 78 04/21/18 13:15 77 04/21/18 13:00 84 04/21/18 12:45 80 04/21/18 12:30 92 H 04/21/18 12:15 72 04/21/18 12:00 71 04/21/18 11:45 53 L 04/21/18 11:30 83 04/21/18 11:15 78 04/21/18 11:00 75 04/21/18 10:45 84 04/21/18 10:30 80 04/21/18 10:15 80 04/21/18 10:00 85 04/21/18 09:50 83 04/21/18 09:40 98.2 F 84 18 04/21/18 09:21 91 H 04/21/18 09:07 112 H 17 04/21/18 09:04 114 H 27 H 04/21/18 09:01 86 14 04/21/18 08:58 87 19 Resp BP BP BP BP Pulse Ox Pulse Ox 04/22/18 08:00 168/115 100 04/22/18 07:51 190/138 04/22/18 04:23 182/124 04/21/18 23:22 140/95 97 04/21/18 22:46 175/127 04/21/18 22:45 175/127 04/21/18 22:00 98 04/21/18 21:28 98 04/21/18 19:11 122/83 98 04/21/18 18:10 152/107 04/21/18 15:25 172/121 100 04/21/18 14:00 98 04/21/18 13:45 178/122 04/21/18 13:40 177/116 04/21/18 13:30 181/123 04/21/18 13:15 177/120 04/21/18 13:00 181/134 04/21/18 12:45 174/114 04/21/18 12:30 146/102 04/21/18 12:15 152/93 04/21/18 12:00 155/95 04/21/18 11:45 149/90 04/21/18 11:30 160/120 04/21/18 11:15 170/104 04/21/18 11:00 160/101 04/21/18 10:45 164/101 04/21/18 10:30 160/98 04/21/18 10:15 162/105 04/21/18 10:00 157/112 04/21/18 09:50 153/107 04/21/18 09:40 159/99 04/21/18 09:21 21 138/94 04/21/18 09:07 199/113 99 04/21/18 09:04 185/117 100 04/21/18 09:01 161/108 100 04/21/18 08:58 174/120 100 Pulse Ox 04/22/18 08:00 04/22/18 07:51 04/22/18 04:23 04/21/18 23:22 04/21/18 22:46 04/21/18 22:45 04/21/18 22:00 04/21/18 21:28 04/21/18 19:11 04/21/18 18:10 04/21/18 15:25 04/21/18 14:00 04/21/18 13:45 04/21/18 13:40 04/21/18 13:30 04/21/18 13:15 04/21/18 13:00 04/21/18 12:45 04/21/18 12:30 04/21/18 12:15 04/21/18 12:00 04/21/18 11:45 04/21/18 11:30 04/21/18 11:15 04/21/18 11:00 04/21/18 10:45 04/21/18 10:30 04/21/18 10:15 04/21/18 10:00 04/21/18 09:50 04/21/18 09:40 04/21/18 09:21 99 04/21/18 09:07 04/21/18 09:04 04/21/18 09:01 04/21/18 08:58 - Physical Examination General: No Apparent Distress HEENT: Positive: PERRL Neck: Positive: neck supple Neuro: Positive: Grossly Intact Abdomen: Positive: Soft Skin: Positive: Clear Extremities: Absent: edema - Labs and Meds Comprehensive Metabolic Panel 04/22/18 Range/Units 07:30 Sodium 135 L (137-145) mmol/L Potassium 3.9 (3.6-5.0) mmol/L Chloride 90.1 L (98-107) mmol/L Carbon Dioxide 25 (22-30) mmol/L BUN 36 H (9-20) mg/dL Creatinine 11.4 H (0.8-1.5) mg/dL Glucose 108 H (75-100) mg/dL Calcium 9.0 (8.4-10.2) mg/dL - Allied health notes Allied health notes reviewed: nursing
[2018-04-22] MEDS: NORMODYNE PO SCH ×2 (08:47→14:01)
[2018-04-22] MEDS: BABY ASPIRIN PO SCH ×2 (08:49→12:18)
[2018-04-22] MEDS: DIOVAN PO SCH ×2 (08:49→12:48)
[2018-04-22] MEDS: PROCARDIA XL PO SCH ×2 (08:50→12:20)
[2018-04-22] MEDS: PEPCID PO SCH ×2 (08:50→12:19)
[2018-04-22] MEDS: SODIUM CHLORIDE FLUSH SYRINGE 10 ML IV SCH ×2 (08:53→12:18)
--- NOTE | 2018-04-22 11:58 | Progress Note ---
Assessment and Plan impression * End-stage renal disease * Hypertension * Anemia * pneumonia * CVA Recommendations * Patient tolerating dialysis well * Continue dialysis on MWF schedule for now * no objection to discharge once outpatient dialysis arrangements have been made * adjust antihypertensive meds * Procrit with dialysis * Avoid nephrotoxins Subjective Date of service: 04/22/18 Principal diagnosis: Hypertensive Emergency; Acute Encephalopathy; GARRETT; Aspiration Pneumonitis Interval history: patient had uneventful dialysis yesterday . Denies any shortness of breath. No nausea or vomiting Objective - Vital Signs Vital signs: Vital Signs - 12hr 04/22/18 04/22/18 04/22/18 04:23 07:51 08:00 Temperature 98.3 F 98.0 F Pulse Rate 87 Respiratory 18 18 Rate Blood Pressure 182/124 190/138 Blood Pressure 168/115 [Left] O2 Sat by Pulse 100 Oximetry 04/22/18 04/22/18 08:47 08:49 Temperature Pulse Rate 89 89 Respiratory Rate Blood Pressure 168/115 168/115 Blood Pressure [Left] O2 Sat by Pulse Oximetry - General Appearance General appearance: well-developed, well-nourished, appears stated age EENT: PERRL, mucous membranes moist Neck: no JVD, no thyromegaly, no carotid bruit, supple, other (right IJ permcath in place ) Respiratory: Present: Clear to Ascultation Cardiology: regular, normal heart rate, S1S2, no murmurs Gastrointestinal: normal, normoactive bowel sounds Integumentary: no rash, other (no edema ) - Lab 04/21/18 05:53 04/22/18 07:30 Most recent lab results Calcium 9.0 mg/dL (8.4-10.2) 04/22/18 07:30
[2018-04-22] MEDS ORDERED: APRESOLINE IV PRN (12:22)
--- NOTE | 2018-04-22 13:56 | Progress Note ---
Assessment and Plan Hypertensive emergency. Acute kidney injury. Aspiration pneumonia with predominant right lower lobe infiltrate in this gentleman with nausea and vomiting. Mild to Moderate Pulm HTN by 2D ECHO Uncontrolled hypertension. Thrombocytopenia. Mild hyponatremia. Metabolic acidosis. Hyperglycemia. Elevated cardiac enzymes with elevated troponin levels. Hyperlipidemia. Obesity. Tobacco use disorder - repeat CXR with significant improvement in RLL infiltrate and likely pulmonary edema - continue HD/UF per oyster floater's prescription for toxin and volume clearance - continue GI & VTE prophylaxis - continue clonidine and valsartan for BP; adjust per nephrology - MORELIA negative for embolic source re: CVA; normal EF and no pulm HTN - prn oxygen for O2 Sats < 90% - de-escalating AB's and will stop rocephin today - MRI suggests CADASIL syndrome; neurology evaluation per attending - PT/OT as tolerated - continue other care per attending / other consultants - verbally encouraged and as he states that he is still making urine i noted there is a chance of renal recovery hopefully .... 35' Subjective Date of service: 04/22/18 Principal diagnosis: Hypertensive Emergency; Acute Encephalopathy; GARRETT; Aspiration Pneumonitis Interval history: Patient is seen today for: Hypertensive Emergency; Acute Encephalopathy; GARRETT; Aspiration Pneumonitis Seen and examined at bedside; 24hour events reviewed; nursing and respiratory care staff consulted; no adverse overnight events reported to me; resting peacefully; a little depressed today; "taking everything in" no headaches; No N/ V/; denies acute chest pains or increased SOB Objective Vital Signs - 12hr 04/22/18 04/22/18 04/22/18 04:23 07:51 08:00 Temperature 98.3 F 98.0 F Pulse Rate 87 Respiratory 18 18 Rate Blood Pressure 182/124 190/138 Blood Pressure 168/115 [Left] O2 Sat by Pulse 100 Oximetry 04/22/18 04/22/18 04/22/18 08:47 08:49 11:33 Temperature Pulse Rate 89 89 Respiratory 18 Rate Blood Pressure 168/115 168/115 157/112 Blood Pressure [Left] O2 Sat by Pulse Oximetry 04/22/18 04/22/18 12:00 12:48 Temperature 97.5 F L Pulse Rate 81 78 Respiratory 18 Rate Blood Pressure 157/112 Blood Pressure 157/112 [Left] O2 Sat by Pulse 98 Oximetry Constitutional: no acute distress, alert, other (young AAM, normocephalic and atraumatic talking in full sentences) Eyes: non-icteric ENT: oropharynx moist, other (mallampati 3) Neck: supple, no lymphadenopathy, no JVD, other (Right Subclavian tunnelled vas- cath) Effort: mildly labored Ascultation: Bilateral: clear, diminished breath sounds Percussion: Bilateral: not dull Cardiovascular: regular rate and rhythm, other (no R/M; + gallop) Gastrointestinal: normoactive bowel sounds, soft, non-tender, non-distended, other (No HSM) Integumentary: normal Extremities: no cyanosis, no edema, pulses normal, no ischemia or petechiae Neurologic: normal mental status, non-focal exam, pupils equal and round, motor strength normal and Psychiatric: mood appropriate, depressed CBC and BMP: 04/21/18 05:53 04/22/18 07:30 Abnormal lab findings: Abnormal Labs 04/16/18 04/16/18 04/16/18 16:55 16:55 16:55 RBC Hgb Hct 35.1 L MCHC 35 H Plt Count 116 L Lymph % (Auto) 7.4 L [place] % (Auto) 8.3 H Lymph # 0.8 L [place] # Seg Neutrophils % 82.8 H Seg Neutrophils # 8.4 H Sodium 133 L Chloride 89.2 L Carbon Dioxide 18 L BUN 104 H Creatinine 19.1 H Glucose 139 H Direct Bilirubin Total Creatine Kinase Troponin T 0.190 H* C-Reactive Protein NT-Pro-B Natriuret Pep > 38043 H Total Protein Albumin Cholesterol 258 H LDL Cholesterol Direct 178 H HDL Cholesterol 60 H 04/16/18 04/16/18 04/17/18 19:28 22:01 16:13 RBC 3.25 L Hgb 10.0 L Hct 29.7 L MCHC Plt Count Lymph % (Auto) [place] % (Auto) Lymph # [place] # Seg Neutrophils % Seg Neutrophils # Sodium Chloride Carbon Dioxide BUN Creatinine Glucose Direct Bilirubin Total Creatine Kinase Troponin T 0.149 H* D 0.171 H* C-Reactive Protein NT-Pro-B Natriuret Pep Total Protein Albumin Cholesterol LDL Cholesterol Direct HDL Cholesterol 04/17/18 04/17/18 04/18/18 16:13 19:48 12:21 RBC 3.14 L Hgb 9.8 L Hct 29.3 L MCHC Plt Count Lymph % (Auto) 11.0 L [place] % (Auto) 11.4 H Lymph # 0.9 L [place] # 0.9 H Seg Neutrophils % 75.0 H Seg Neutrophils # Sodium 135 L Chloride 91.3 L Carbon Dioxide BUN 66 H Creatinine 14.6 H Glucose 120 H Direct Bilirubin Total Creatine Kinase Troponin T C-Reactive Protein 2.70 H NT-Pro-B Natriuret Pep Total Protein Albumin Cholesterol LDL Cholesterol Direct HDL Cholesterol 04/18/18 04/18/18 04/18/18 12:21 12:21 18:41 RBC Hgb Hct MCHC Plt Count Lymph % (Auto) [place] % (Auto) Lymph # [place] # Seg Neutrophils % Seg Neutrophils # Sodium 132 L Chloride 90.5 L Carbon Dioxide 20 L BUN 76 H Creatinine 17.7 H Glucose 107 H Direct Bilirubin Total Creatine Kinase Troponin T 0.236 H* D 0.261 H* C-Reactive Protein NT-Pro-B Natriuret Pep Total Protein Albumin Cholesterol LDL Cholesterol Direct HDL Cholesterol 04/19/18 04/19/18 04/19/18 01:00 06:56 06:56 RBC 3.01 L Hgb 9.5 L Hct 27.9 L MCHC Plt Count Lymph % (Auto) [place] % (Auto) Lymph # [place] # Seg Neutrophils % Seg Neutrophils # Sodium 136 L Chloride 91.8 L Carbon Dioxide 20 L BUN 90 H Creatinine 19.6 H Glucose Direct Bilirubin Total Creatine Kinase Troponin T 0.268 H* C-Reactive Protein NT-Pro-B Natriuret Pep Total Protein Albumin Cholesterol LDL Cholesterol Direct HDL Cholesterol 04/19/18 04/19/18 04/20/18 06:56 06:56 06:48 RBC 3.24 L Hgb 10.2 L Hct 30.2 L MCHC Plt Count Lymph % (Auto) [place] % (Auto) Lymph # [place] # Seg Neutrophils % Seg Neutrophils # Sodium Chloride Carbon Dioxide BUN Creatinine Glucose Direct Bilirubin 0.3 H Total Creatine Kinase 208 H Troponin T C-Reactive Protein NT-Pro-B Natriuret Pep Total Protein 6.0 L Albumin 3.3 L Cholesterol LDL Cholesterol Direct HDL Cholesterol 04/20/18 04/21/18 04/21/18 06:48 05:53 05:53 RBC 3.24 L Hgb 10.1 L Hct 30.3 L MCHC Plt Count Lymph % (Auto) [place] % (Auto) Lymph # [place] # Seg Neutrophils % Seg Neutrophils # Sodium 136 L Chloride 93.8 L 90.9 L Carbon Dioxide BUN 59 H 66 H Creatinine 13.7 H 16.6 H Glucose Direct Bilirubin Total Creatine Kinase Troponin T C-Reactive Protein NT-Pro-B Natriuret Pep Total Protein Albumin Cholesterol LDL Cholesterol Direct HDL Cholesterol 04/22/18 07:30 RBC Hgb Hct MCHC Plt Count Lymph % (Auto) [place] % (Auto) Lymph # [place] # Seg Neutrophils % Seg Neutrophils # Sodium 135 L Chloride 90.1 L Carbon Dioxide BUN 36 H Creatinine 11.4 H Glucose 108 H Direct Bilirubin Total Creatine Kinase Troponin T C-Reactive Protein NT-Pro-B Natriuret Pep Total Protein Albumin Cholesterol LDL Cholesterol Direct HDL Cholesterol Allied health notes reviewed: nursing
[2018-04-22] MEDS ORDERED: CATAPRES PO SCH ×2 (14:00)
[2018-04-22] MEDS: ALUM-MAG HYDROX-SIMETH 200-200-20MG/5ML PO PRN (14:05)
[2018-04-22 14:06] VITALS: BP 144/103
--- NOTE | 2018-04-22 14:12 | Discharge Summary ---
Providers - Providers Date of Admission: 04/16/18 18:14 Date of discharge: 04/22/18 Attending physician: ISAURA KEARNEY 04/16/18 17:45 Consult to Physician [CONS] Stat Comment: DR BREWSTER NOTIFIED 1750 Consulting Provider: ARJUN BREWSTER Physician Instructions: Reason For Exam: acute renal failure 04/16/18 17:52 Consult to Physician [CONS] Stat Comment: DR MARIA NOTIFIED 1745 Consulting Provider: JUAN MARIA Physician Instructions: Reason For Exam: dialysis access 04/16/18 19:32 Consult to Physician [CONS] Routine Comment: Consulting Provider: TAMICA ORELLANA Physician Instructions: Reason For Exam: Hypertensive crisis on cardene drip 04/18/18 13:22 Consult to Physician [CONS] Routine Comment: Consulting Provider: ALEJANDRO ASHTON Physician Instructions: Reason For Exam: Elevated Troponin 04/19/18 09:09 Consult to Physician [CONS] Routine Comment: Consulting Provider: GABRIELLA HERNANDEZ Physician Instructions: Reason For Exam: acute ischemic stroke 04/19/18 09:10 Occupational Therapy Evaluate and Treat [CONS] Routine Comment: Reason For Exam: Neuro deficits Physical Therapy Evaluation and Treat [CONS] Routine Comment: Reason For Exam: Neuro deficits Primary care physician: LENS MATCHER Hospitalization Condition: Fair Disposition: DC-01 TO HOME OR SELFCARE Core Measure Documentation - Palliative Care Palliative Care/ Comfort Measures: Not Applicable - Core Measures Any of the following diagnoses?: stroke - Stroke Discharge Requirements Statin for LDL = or >70 mg/dl on DC: Yes Anticoag for atrial fib/atrial flutter: Not Applicable Antithrombotic for ischemic stroke: Yes Exam - Constitutional Vitals: Temp Pulse Resp BP Pulse Ox 97.5 F L 85 18 144/103 98 04/22/18 12:00 04/22/18 14:02 04/22/18 12:00 04/22/18 14:02 04/22/18 12:00 Plan Activity: advance as tolerated Diet: low fat, low cholesterol, low salt, renal Additional Instructions: 1.Follow up with PCP or [facility] in 1 week. 2.Follow up with Dr. Flor, cardiology on 05/19/18. 3.Follow up with Neurology at [facility] for CADASIL syndrome. 4.Hemodialysis on as scheduled. 5.Follow up with Nephrology at dialysis Follow up with: PRIMARY CARE, [Primary Care Provider] - 3-5 Days Prescriptions: Aspirin EC [Aspirin Enteric Coated TAB] 81 mg PO QDAY 30 Days tablet. cloNIDine [Catapres] 0.2 mg PO TID 30 Days tablet Famotidine [Pepcid] 20 mg PO BID 30 Days tablet Labetalol [Normodyne TAB] 300 mg PO TID 30 Days tablet NIFEdipine XL [Procardia Xl] 90 mg PO QDAY 30 Days tablet Valsartan [Diovan] 160 mg PO BID 30 Days tablet
== END 2018-04-22 19:14 | disposition home or self-care (01) | DRG 673 ==
LOC: ED 16:17 → CC1 18:14 → 4A 04-18 17:16
PROVIDERS: ADMIT Internal Medicine; ATTEND Internal Medicine
PROC: 0JH63XZ Insertion of Tunneled Vascular Access Device into Chest Subcutaneous Tissue and Fascia, Percutaneous Approach (ICD-10-PCS; principal; 2018-04-17)
PROC: 02H633Z Insertion of Infusion Device into Right Atrium, Percutaneous Approach (ICD-10-PCS; 2018-04-17)
PROC: B2141ZZ Fluoroscopy of Right Heart using Low Osmolar Contrast (ICD-10-PCS; 2018-04-17)
PROC: B244YZZ Ultrasonography of Right Heart using Other Contrast (ICD-10-PCS; 2018-04-17)
DX: N17.9 Acute kidney failure, unspecified (principal); I63.9 Cerebral infarction, unspecified; J69.0 Pneumonitis due to inhalation of food and vomit; I12.0 Hypertensive chronic kidney disease with stage 5 chronic kidney disease or end stage renal disease; I16.9 Hypertensive crisis, unspecified; I16.1 Hypertensive emergency; E87.2 Acidosis; I82.612 Acute embolism and thrombosis of superficial veins of left upper extremity; E87.1 Hypo-osmolality and hyponatremia; N18.6 End stage renal disease; F17.200 Nicotine dependence, unspecified, uncomplicated; D69.6 Thrombocytopenia, unspecified; E78.5 Hyperlipidemia, unspecified; E66.9 Obesity, unspecified; F10.10 Alcohol abuse, uncomplicated; F12.10 Cannabis abuse, uncomplicated; Y90.9 Presence of alcohol in blood, level not specified; R29.700 NIHSS score 0; D63.1 Anemia in chronic kidney disease; I27.20 Pulmonary hypertension, unspecified; Z91.19 Patient's noncompliance with other medical treatment and regimen; Z82.49 Family history of ischemic heart disease and other diseases of the circulatory system; Z68.31 Body mass index [BMI] 31.0-31.9, adult; Z71.6 Tobacco abuse counseling
CPT/HCPCS: 36415; 36558; 70450; 70551; 71045; 76770; 77001; 80048; 80061; 80074; 82140; 82550; 83880; 84443; 84484; 85025; 85027; 86140; 87040; 93005; 93010; 93306; 93312; 93320; 93325; 93880; 94760; 96374; 99406; C1750; C1751; J0360; J0456; J0690; J0696; J1644; J2250; J3010; J7030; J7050